=== PATIENT | male | born 1945 | race Caucasian/White ===

== ENCOUNTER 2022-10-27 06:35 | Outpatient (OUT) | payer MEDICARE, OTHER, SELFPAY ==
[2022-10-27 06:56] LABS: Basophils Percent Auto 0.8 % (0.2-2.0); Eosinophils Absolute Auto 0.1 10^3/uL (0.0-0.7); Eosinophils Percent Auto 2.2 % (0.9-7.0); Hematocrit 48.6 % (42.0-54.0); Hemoglobin 16.2 g/dL (14.0-18.0); Immature Granulocytes Abs Auto 0.02 10^3/uL (0.00-0.03); Immature Granulocytes Pct Auto 0.4 % (0.0-0.5); Lymphocytes Absolute Auto 1.3 10^3/uL (1.2-3.8); Lymphocytes Percent Auto 26.5 % (20.5-60.0); Mean Corpuscular HGB Conc 33.3 g/dL (29.9-35.2); Mean Corpuscular Hemoglobin 31.4 pg (25.9-34.0); Mean Corpuscular Volume 94.2 fL (80.0-94.0); Mean Platelet Volume 10.2 fL (9.5-13.5); Monocytes Absolute Auto 0.5 10^3/uL (0.3-0.8); Monocytes Percent Auto 10.1 % (1.7-12.0); Platelet Count 163 10^3/uL (150-450); Red Blood Count 5.16 10^6/uL (4.70-6.10); Red Cell Distribution Width 12.3 % (11.0-15.0); White Blood Count 5.1 10^3/uL (4.0-11.0)
[2022-10-27 07:38] LABS: BUN Creatinine Ratio 22.8; Calcium 8.4 mg/dL (8.5-10.1); Carbon Dioxide 28.2 mmol/L (21.0-32.0); Chloride 106 mmol/L (98-107); Chol HDL Ratio 3.9; Cholesterol 175 mg/dL (<=200); Estimated GFR (African America >60 (>=60); Estimated GFR (Non-African Ame >60 (>=60); Glucose 83 mg/dL (74-106); HDL Cholesterol 45 mg/dL (40-60); LDL Cholesterol Calculated 114.8 mg/dL; Potassium 4.2 mmol/L (3.5-5.1); Sodium 140 mmol/L (136-145); Thyroid Stimulating Hormone 4.787 uIU/mL (0.358-3.740); Triglycerides 76 mg/dL (<=150); VLDL CHOLESTEROL 15.2 mg/dL
== END 2022-10-27 06:36 | disposition home or self-care (01) ==
LOC: LAB 06:35
PROVIDERS: PCP Internal Medicine; Visit Provider Internal Medicine
DX: E78.00 Pure hypercholesterolemia, unspecified (principal); R53.83 Other fatigue
CPT/HCPCS: 36415; 80048; 80061; 84443; 85025

== ENCOUNTER 2022-11-26 09:23 | Outpatient (OUT) | payer MEDICARE, OTHER, SELFPAY ==
[2022-11-26 10:34] LABS: Thyroid Stimulating Hormone 2.298 uIU/mL (0.358-3.740)
[2022-11-26 10:54] LABS: Free T4 0.88 ng/dL (0.76-1.46)
[2022-11-27 03:07] LABS: Triiodothyronine (T3) 109 ng/dL (71-180)
== END 2022-11-26 09:24 | disposition home or self-care (01) ==
LOC: LAB 09:25
PROVIDERS: PCP Internal Medicine; Visit Provider Internal Medicine
DX: R94.6 Abnormal results of thyroid function studies (principal)
CPT/HCPCS: 36415; 84439; 84443; 84480

== ENCOUNTER 2023-12-06 11:30 | Outpatient (OUT) | payer MEDICARE, OTHER, SELFPAY ==
[2023-12-06 12:28] LABS: Basophils Percent Auto 0.5 % (0.2-2.0); Eosinophils Absolute Auto 0.1 10^3/uL (0.0-0.7); Hematocrit 50.3 % (42.0-54.0); Hemoglobin 16.5 g/dL (14.0-18.0); Immature Granulocytes Abs Auto 0.03 10^3/uL (0.00-0.03); Immature Granulocytes Pct Auto 0.5 % (0.0-0.5); Lymphocytes Percent Auto 17.6 % (20.5-60.0); Mean Corpuscular HGB Conc 32.8 g/dL (29.9-35.2); Mean Corpuscular Hemoglobin 31.4 pg (25.9-34.0); Mean Corpuscular Volume 95.6 fL (80.0-94.0); Mean Platelet Volume 10.5 fL (9.5-13.5); Monocytes Absolute Auto 0.5 10^3/uL (0.3-0.8); Monocytes Percent Auto 9.2 % (1.7-12.0); Neutrophils Absolute Auto 4.2 10^3/uL (1.4-6.5); Neutrophils Percent Auto 71.2 % (43.0-75.0); Platelet Count 173 10^3/uL (150-450); Red Blood Count 5.26 10^6/uL (4.70-6.10); Red Cell Distribution Width 12.5 % (11.0-15.0); White Blood Count 5.8 10^3/uL (4.0-11.0)
[2023-12-06 13:40] LABS: Percent Iron Saturation 39.7 %
[2023-12-06 13:51] LABS: Alanine Aminotransferase 33 U/L (16-63); Albumin Globulin Ratio 1.4; Albumin Level 3.8 g/dL (3.4-5.0); Alkaline Phosphatase 103 U/L (46-116); Anion Gap 12.9; Aspartate Amino Transferase 25 U/L (15-37); BUN Creatinine Ratio 20.9; Bilirubin Total 0.8 mg/dL (0.2-1.0); Calcium 9.2 mg/dL (8.5-10.1); Carbon Dioxide 29.7 mmol/L (21.0-32.0); Chloride 106 mmol/L (98-107); Estimated GFR (African America >60 (>=60 mL/min/1.73m^2); Estimated GFR (Non-African Ame >60 (>=60 mL/min/1.73m^2); Globulin 2.7 g/dL; Glucose 89 mg/dL (74-106); Potassium 4.6 mmol/L (3.5-5.1); Sodium 144 mmol/L (136-145); Thyroid Stimulating Hormone 3.542 uIU/mL (0.358-3.740); Total Protein 6.5 g/dL (6.4-8.2)
[2023-12-06 13:54] LABS: Prostate Specific Antigen Scrn 1.04 ng/mL (<=4.00)
[2023-12-07 05:07] LABS: Vitamin B12 561 pg/mL (232-1245)
== END 2023-12-06 11:31 | disposition home or self-care (01) ==
LOC: LAB 11:32
PROVIDERS: PCP Internal Medicine; Visit Provider Internal Medicine
DX: R53.83 Other fatigue (principal); D64.9 Anemia, unspecified; R79.89 Other specified abnormal findings of blood chemistry; Z12.5 Encounter for screening for malignant neoplasm of prostate
CPT/HCPCS: 36415; 80053; 82607; 82728; 83540; 83550; 84443; 85025; G0103

== ENCOUNTER 2024-12-07 11:39 | Outpatient (OUT) | payer MEDICARE, OTHER, SELFPAY ==
--- OUTSIDE RECORDS SUMMARY | 2024-12-07 11:43 | XMS_ITS | Clinical Summary ---
Author Organization [facility] Address [address] [place] [address] Care Team Providers Care Director [facility] Name Role Phone Cleveland Guajardo Primary Care Provider [phone] Allergies Active Allergy Reactions Criticality Noted Date Comments Ciprofloxacin 11/30/2016 Sulfamethoxazole High 08/17/2024 Other Reaction(s): other Medications aspirin (Aspirin Adult Low Dose) 81 MG EC tablet Take 81 mg by mouth Daily Active Coenzyme Q10 (COQ10 PO) 1 qd Active Garlic 1000 MG capsule Take 2 capsules every day by oral route. Active Glucosamine-Cho ndroit-Vit C-Mn (Glucosamine-Ch ondroitin) capsule 1500/1200 2 qd Activ e latanoprost (Xalatan) 0.005 % ophthalmic solution INSTILL 1 DROP INTO AFFECTED EYE(S) BY OPHTHALMIC ROUTE ONCE DAILY INTHE EVENING 4 Active calcium acetate (Phoslo) 667 MG capsule Take 1,334 mg by mouth in the morning and 1,334 mg at noon and 1,334 mg in the evening. Take with meals. Active busPIRone (Buspar) 5 MG tablet Take by mouth in the morning and before bedtime. Active cholecalciferol (Vitamin D-3) 25 MCG (1000 UT) capsule Take 1,000 Units by mouth Daily Active Lutein 20 MG tablet Take by mouth Active Multiple Vitamin (multivitamin) tablet Take 1 tablet by mouth Daily Active fish oil-omega-3 fatty acids 1000 MG capsule Take 2 g by mouth Daily Active Turmeric 400 MG capsule Take by mouth Active B Complex-C (b complex-vitamin c) tablet Take 1 tablet by mouth Daily Active Active Problems Problem Noted Date Diagnosed Date Mitral valve disease 08/17/2024 Primary open-angle glaucoma, bilateral, mild sta ge 08/17/2024 Anxiety 04/25/2018 Hyperlipidemia 04/25/2018 Male erectile dysfunction, unspecified 9 Diverticular disease 02/06/2016 Glaucoma 02/06/2016 History of repair of inguinal hernia 02/06/2016 History of repair of mitral valve 02/06/2016 Osteoarthritis 02/06/2016 Diverticulosis of colon 03/24/2010 Overview (08/17/2024): Sep 15, 2012 Entered By: JAVON FOSS Comment: colonoscopy Mar 2010. diverticulosis. Family History Relation Name Status Comments Father Mother Social History Tobacco Use Types Packs/Day Years Used Date Smoking Tobacco: Never Smokeless Tobacco: Never Tobacco Cessation:Counseling Given: Not Answered Alcohol Use Standard Drinks/Week Comments Never 0 (1 standard drink = 0.6 oz pur e alcohol) Sex and Gender Information Value Date Recorded Sex Assigned at Not on file Legal Sex Male 10:07 PM EDT Gender Identity Not on file Sexual Orientation Not on file Last Filed Vital Signs Vital Sign Reading Time Taken Comments Blood Pressure - - Pulse - - Temperature - - Respiratory Rate - - Oxygen Saturation - - Inhaled Oxygen Concentration - - Weight 77.1 kg (170 lb) 08/20/2024 2:15 PM EDT Height 177.8 cm (5' 10 ) 08/20/2024 2:15 PM EDT Body Mass Index 24.39 08/20/2024 2:15 PM EDT Plan of Treatment Not on file [place] [address] [facility] Care Teams Director [facility] Relationship Specialty Start Date End Date Cleveland Guajardo DO [address] [place] [id number] PCP - General Internal Medicine 08/20/24
--- OUTSIDE RECORDS SUMMARY | 2024-12-07 11:43 | XMS_ITS | Encounter Summary ---
Author Organization [facility] Address [address] 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 Role Phone Unavailable Primary Care Provider Unavailabl e Encounter Details Date Type Department Care Team (Late st Contact Info) Description 12/10/2022 Scanned Document [facility] [address] [place] [address] Scanning, Generic Provider Social History Tobacco Use Types Packs/Day Years Used Date Smoking Tobacco: Never Assessed Sex and Gender Information Value Date Recorded Sex Assigned at Not on file Legal Sex Male 11:36 AM EST Gender Identity Not on file Sexual Orientation Not on file documented as of this encounter Plan of Treatment Not on file documented as of this encounter Procedures Procedure Name Priority Date/Time Associated Diagnosis Comments ECHOCARDIOGRAM 12/10/2022 documented in this encounter Results * ECHOCARDIOGRAM (12/10/2022) Narrative 12/10/2022 Ordered by an unspecified provider. us Generic Provider Scanning CV ECHO PROCEDURES Fin al Result documented in this encounter Visit Diagnoses Not on filedocumented in this encounter
--- OUTSIDE RECORDS SUMMARY | 2024-12-07 11:43 | XMS_ITS | Clinical Summary ---
Author Organization [facility] Address [address] 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 Role Phone Unavailable Primary Care Provider Unavailabl e Social History Tobacco Use Types Packs/Day Years Used Date Smoking Tobacco: Never Assessed Sex and Gender Information Value Date Recorded Sex Assigned at Not on file Legal Sex Male 11:36 AM EST Gender Identity Not on file Sexual Orientation Not on file Plan of Treatment Health Maintenance Due Date Last Done Comments Lipid Panel 1945 Medicare Annual Wellness Vis it (AWV) 1945 Hepatitis C Screening 1965 DTaP/Tdap/Td Vaccines (1 - Tdap) 1969 Pneumococcal Vaccine (1 of 1 - PCV) 1997 Zoster Vaccines (1 of 2) 1997 RSV High Risk: (Elderly (60+ ) or Population) (1 - 1-dose 75+ series) 2022 Influenza Vaccine (#1) 2024 COVID-19 Vaccine (1 - 2024-2 6 season) 2024 HIB Vaccines Aged Out No longer eligi ble based on patient's age to complete this topic HPV Vaccines Aged Out No longer eligi ble based on patient's age to complete this topic Hepatitis A Vaccines Aged Out No long er eligible based on patient's age to complete this topic Hepatitis B Vaccines Aged Out No long er eligible based on patient's age to complete this topic IPV Vaccines Aged Out No longer eligi ble based on patient's age to complete this topic Meningococcal Vaccine Aged Out No zay essence eligible based on patient's age to complete this topic Rotavirus Vaccines Aged Out No longer eligible based on patient's age to complete this topic Insurance MEDICARE [facility]
--- OUTSIDE RECORDS SUMMARY | 2024-12-07 11:43 | XMS_ITS | Data Portability ---
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 [phone] Assessment Encounter Date Assessment Date Assessment LastModified by Organization Details LastModified Time 04/24/2023 04/24/2023 A total of 30 minutes spent caring for this patient today including the activities marked (X) below: [X] Preparing to see the patient (review of previous notes and results on file) [-] Obtaining and/or reviewing separately obtained history [X] Performing medically appropriate exam/evaluation [X] Counseling and educating the patient/family/ca regiver [X] Ordering tests or procedures [-] Referring and communicating with other health professionals (not separately reported) [X] Documenting clinical information in EHR/EMR [X] Independent interpretation of results (not separately reported) [X] Care Coordination (not separately reported) Additional notes: printed precaution given for Paxlovid / Lagivero printed OTC list Given [email or web address] Not available 04/24/2023 09:43:52 Plan of Treatment Reminders Order Date Submit Date Provider Last Modified By Organization Details Last Modified Time Details Appointments None recorded. Lab None recorded. Referral None recorded. Procedures None recorded. Surgeries None recorded. Imaging XR, chest, 2 view 2023 024 [place], [employer] [facility], All Locations, [place], [address], 4 14:07:49 XR, shoulder 2021 022 [facility], [facility], All Locations, [place], [address], 2 21:50:10 unlisted imaging order - US soft tissue 2019 020 [facility], [facility], All Locations, [place], [address], 0 17:02:02 XR, tibia + fibula 2019 020 [facility], [facility], All Locations, [place], [address], 0 15:54:52 Medication Orders Augmentin 875 mg-125 mg tablet [address] [facility] #[id number], [address] [place], [place], [id number], 4 09:45:15 benzonatat e 100 mg capsule [address] [facility] #90215, [address], [place], [id number], 4 09:45:16 prednisone 20 mg tablet [address] [facility] #15344, [address], [place], [id number], 4 09:09:59 meloxicam 7.5 mg tablet [address] [facility] #92181, [address], [place], [place], [id number], 4 09:10:20 famotidine 20 mg tablet 2019 020 INTERFACE [facility]67, [address], [place], [place], [id number], 0 14:20:07 Patient TargetsNo targets recorded. Patient Instructions Encounter Date Encounter Id Patient Instructions Last Modified By Organization Details Last Modified Time 04/16/2019 [id number] contusion: care instructions Not available 04/16/2019 15:38:16 Discussed right LE injury, contusion and no obvious Fx noted on sray (radiology report pending)-applied annmarie wrap,. Discussed RICE, motrin, tylenol. Follow up with ortho/PCP. Discussed warning signs to go to ER (severe swelling with loss of circulation/sens ation/motion, fever, chills, blue/cold extremity). Not available 04/17/2019 15:39:44 05/07/2019 [id number] We'll order ultrasound soft tissue. We'll place him on meloxicam as instructed together with Pepcid coverage. Warm compresses several times a day. Review in a week. Not available 05/07/2019 14:26:17 05/14/2019 [id number] He can continue applying warm compresses. He is on meloxicam and Pepcid. He can stop this when he is feeling better. Advised him to have the Pepcid around if any issues arise that he may need a nonsteroidal. He has a history of esophagitis. He plans to return in December. Not available 05/14/2019 14:39:00 03/29/[id number] Patient understands instructions and will seek medical attention if symptoms worsen as directed. [email or web address] Not available 03/29/2021 09:29:46 04/24/2023 [id number] ear infection (otitis media): care instructions [email or web address] Not available 04/24/2023 09:47:08 cough: care instructions [email or web address] Not available 04/24/2023 09:47:08 earwax blockage: care instructions [email or web address] Not available 04/24/2023 09:47:08 print care instructions [email or web address] Not available 04/24/2023 09:45:09 Patient understands instructions and will seek medical attention if symptoms worsen as directed. Patient agrees to follow up with PCP. Patient understands instructions and with verbal acknowledgement. Patient understands if symptoms worsens they will seek emergency medical treatment and or call 911 if needed. Patient understands with verbal acknowledgement. [email or web address] Not available 04/24/2023 09:45:01 Reason for Referral None Reported. Results Created Date Observation Date Name Description Value Unit Range Abnormal Flag Note LastModifiedBy Organization Detail LastModifiedTime 04/18/19 20 04/16/2019 tib/f ib 2V right No observ ation record ed. [id number] [facility] All Locations, [place], [address], 02/03/2024 19:34:09 05/08/19 20 05/08/2019 US soft tissu e RT lower ext non vascu lar No observ ation record ed. [id number] [facility] All Locations, [place], [address], 02/03/2024 19:34:02 03/30/19 22 03/29/2021 XR, shoul shruthi INDICA TION: . TECHNI QUE: SHOULD ER 3V RIGHT. COMPAR ANA: None FINDIN GS: High riding ghanshyam l head. No acute fractu re or disloc ation. Mild degene rative change s in the acromi oclavi cular and glenoh umeral joints . No acute infilt rate in what is seen in the right lung. There are midlin e sterno soraya wires. IMPRES LUIS: High riding ghanshyam l head which can be seen in the presen ce of rotato r cuff pathol ogy. No acute osseou s abnorm ality. Electr onical ly Signed By: Kendra davis M.D., Darin Sign Date: [id number] [facility] All Locations, [place], [address], 03/31/2021 10:06:44 04/24/19 24 04/24/2023 XR, chest , 2 view INDICA TION: R05.9 Cough, unspec ified. TECHNI QUE: CHEST 2V. COMPAR ANA: None FINDIN GS: Postsu rgical change s are presen t from sterno soraya with heart replac ed valve. Cardia c silhou ette is not enlarg ed. Lungs appear clear consol idatio n or infilt rate. No pleura l effusi on is shown. There is hyperi nflati on with flatte karina of hemidi aphrag ms. Thorac ic spondy losis is presen t. IMPRES LUIS: No pulmon lisa infilt rates are shown. Hyperi nflati on is sugges cristhian. Note: The [facility] an Cancer Societ y, [facility] and the [place] preven tative servic es task force now approv e CT low-do se chest screen ing in the follow ing patien ts: - Age 55-77 who curren tly smoke or who have quit within the last 15 years - Asympt omatic patien ts with a 30-pac k-year histor y of smokin g Electr onical ly Signed By: Aline Rodriges Stanle y Sign Date: [id number] [facility] All Locations, [place], [address], 01/13/2024 19:45:54 Result Notes Documentation Provider Name and Address Organization Details Recorded Time Xr, Shoulder : INDICATION: . TECHNIQUE: SHOULDER 3V RIGHT. COMPARISON: None FINDINGS: High riding humeral head. No acute fracture or dislocation. Mild degenerative changes in the acromioclavicular and glenohumeral joints. No acute infiltrate in what is seen in the right lung. There are midline sternotomy wires. IMPRESSION: High riding humeral head which can be seen in the presence of rotator cuff pathology. No acute osseous abnormality. Electronically Signed By: Alien Rogers Darin Sign Date: 30-MAR-21 Phyllis Diaz [place], [place] - [employer] [facility], [facility] 03/31/2021 10:06:44 Xr, Chest, 2 View : INDICATION: R05.9 Cough, unspecified. TECHNIQUE: CHEST 2V. COMPARISON: None FINDINGS: Postsurgical changes are present from sternotomy with heart replaced valve. Cardiac silhouette is not enlarged. Lungs appear clear consolidation or infiltrate. No pleural effusion is shown. There is hyperinflation with flattening of hemidiaphragms. Thoracic spondylosis is present. IMPRESSION: No pulmonary infiltrates are shown. Hyperinflation is suggested. Note: The [employer], [facility] and the [place] preventative services task force now approve CT low-dose chest screening in the following patients: - Age 55-77 who currently smoke or who have quit within the last 15 years - Asymptomatic patients with a 40-vwvz-eufi history of smoking Electronically Signed By: Aline Rodriges Stanley Sign Date: 24-APR-23 Not Available [facility] 01/13/2024 20:08:56 Problems Name Problem SNOMED Code Status Onset Date Resolution Date Notes Provider Name and Address Organization Details Recorded Time Osteoarthritis 411408503 Active [address], [place], [address], [facility] 6 11:58:14 Diverticular disease 616506313 Active [address], [place], [address], [facility] [employer] [facility], [facility] 6 11:58:25 History of repair of mitral valve 531376705 Active [address], [place], [address], [facility], [employer] 6 11:58:47 Glaucoma 48445507 Active [address], [place], [address], [facility], [facility] 6 11:59:29 History of repair of inguinal hernia 493882431 Active [address], [place], [address], [facility] Physician [facility], [facility] 6 12:04:01 Complaining of erectile dysfunction Active 2018 Sabrina Mckinney MD [address], [place], [address], [facility], [facility] 9 17:08:35 Anxiety 02467181 Active 2018 Sabrina Mckinney MD [address], [place], [address], [facility], [facility] 9 16:49:32 Hyperlipidemia 91832524 Active 2018 Sabrina Mckinney MD [address], [place], [address], [facility], [facility] 9 16:49:44 Problem Notes None recorded. Procedures Surgical History Date Name Laterality Status Provider Name and Address Organization Details Recorded Time 04/24/19 24 Cerumen Disimpaction Lavage Only (PCP, WIC, Spec) completed Katie Fry APRN [address], [place], [address], [facility] Physician [facility], [facility] 04/24/2023 09:45:50 02/21/19 16 Other completed [facility], [facility] 02/06/2016 11:26:27 02/21/19 16 Other completed [facility], [facility] 02/06/2016 11:26:51 02/21/19 15 Hernia repair completed [facility], [facility] 02/06/2016 11:23:48 02/21/19 15 Excision of completed [facility], [facility] 02/06/2016 11:24:38 02/21/19 14 Cataract excision completed PINA Medeiros [address], [place], [address], [facility] Physician [facility], [facility] 02/06/2016 20:25:22 02/21/19 13 Colonoscopy completed [facility], [facility] 02/06/2016 11:25:06 02/21/19 07 Hernia repair completed [facility] 02/06/2016 11:23:10 02/21/19 06 Back surgery completed [facility] 02/06/2016 11:22:48 02/21/19 00 Valve replacement/repa ir completed [facility] 02/06/2016 11:22:20 02/21/18 97 Knee surgery completed [facility] 02/06/2016 11:21:44 02/21/18 57 Appendectomy completed [facility] 02/06/2016 11:22:34 Imaging Results None recorded. Procedure Notes None recorded. Medical Equipment None Reported. Allergies Allergen ID Allergen Name Allergen Category Reaction Reaction Severity Criticality Documentation Date Start Date Code Code System Note Provider Name and Address Organization Details Recorded Time 989783 ciproflox acin medicatio n Not available Not available Not available 12/27/2016 2551 RxNorm Rossi Altamirano [facility] 7 15:54:15 265529 sulfameth oxazole medicatio n other severe Not available 12/27/2016 45389 RxNorm Rossi Altamirano [facility] 7 15:58:04 Medications Name Sig Start Date Stop Date Status Note LastModified by Organization Details LastModified Time latanoprost 0.005 % eye drops INSTILL 1 DROP INTO AFFECTED EYE(S) BY OPHTHALMI C ROUTE ONCE DAILY INTHE EVENING active Not Available Not Available No t Available Augmentin 875 mg-125 mg tablet Take 1 tablet every 12 hours by oral route for 7 days, for ear infection . 2023 active Not Available Not Available Not Avai lable prednisone 20 mg tablet Take 2 tablets every day by oral route for 5 days. 04/23 completed Not Available Not Available Not Available Viagra 50 mg tablet Take 1 tablet 1 hour before activity. 03/12 completed Not Available Not Available Not Available omeprazole 40 mg capsule,del ayed release 02/05 completed Not Available Not Available Not Available tramadol 50 mg tablet 02/05 completed Not Available Not Available Not Available meloxicam 7.5 mg tablet Take 1 tablet every day by oral route as directed. 04/23 completed Not Available Not Available Not Available garlic 1,000 mg capsule Take 2 capsules every day by oral route. active Not Available Not Available No t Available oxycodone-a cetaminophe n 5 mg-325 mg tablet 02/05 completed Not Available Not Available Not Available famotidine 20 mg tablet Take 1 tablet twice a day by oral route. 2019 active Not Available Not Available Not Avai lable tamsulosin 0.4 mg capsule 04/04 completed Not Available Not Available Not Available benzonatate 100 mg capsule Take 1 capsule 3 times a day by oral route for 10 days, for cough. 2023 active Not Available Not Available Not Avai lable pramipexole 0.125 mg tablet 02/05 completed Not Available Not Available Not Available Asprin Ec Low Dose 81 mg tablet,angela yed release Take 1 tablet every day by oral route. active Not Available Not Available No t Available Vitamin C 1000 mg qod active Not Available Not Available No t Available vitamin E 1 qod 12/30 completed Not Available Not Available Not Available Vitamin D 1 qod 12/30 completed Not Available Not Available Not Available Acidophilus 1 qd active Not Available Not A vailable Not Available CoQ10 1 qd active Not Available Not Availa ble Not Available Glucosamine Chondroitin 1500/1200 2 qd active Not Available Not Available No t Available mvi, adult no.2 without vit K 1 qd active Not Available Not Available Not Available Lialda 1.2 gram tablet,angela yed release 02/05 completed Not Available Not Available Not Available Fish Oil 1,000 mg (120 mg-180 mg) capsule Take 1 capsule every other day by oral route. 12/30 completed Not Available Not Available Not Available Vitals Date Recorded Body weight Body temperature Heart rate Respiratory rate Oxygen saturation Oxygen saturation in Arterial blood by Pulse oximetry Pain severity - 0-10 verbal numeric rating [Score] - Reported Body mass index (BMI) Body height Systolic And Diastolic Provider Name and Address Organization Details Last Updated DateTime 2 47606.6 6 g 98.4 [degF] 60 /min 16 /min 98 % 98 % 6 25.1 kg/m2 177.8 cm 107/68 mm[Hg] Jany Farzad [facility], [facility] 2 09:10:46 Date Recorded Body height Body mass index (BMI) Heart rate Body weight Body temperature Oxygen saturation Oxygen saturation in Arterial blood by Pulse oximetry Respiratory rate Systolic And Diastolic Provider Name and Address Organization Details Last Updated DateTime 0 179.07 cm 24.3 kg/m2 65 /min 85138 g 98.6 [degF] 96 % 96 % 16 /min 103/74 mm[Hg] Debbie Davisonscot [facility], [facility] 0 14:16:10 Date Recorded Body weight Body mass index (BMI) Body height Body temperature Heart rate Respiratory rate Oxygen saturation Oxygen saturation in Arterial blood by Pulse oximetry Pain severity - 0-10 verbal numeric rating [Score] - Reported Systolic And Diastolic Provider Name and Address Organization Details Last Updated DateTime 4 77558.5 2 g 24.1 kg/m2 177.8 cm 98.3 [degF] 75 /min 16 /min 95 % 95 % 6 110/74 mm[Hg] Kiki Steinberg [facility], [facility] 4 09:12:17 Date Recorded Body height Body mass index (BMI) Body weight Body temperature Heart rate Respiratory rate Oxygen saturation Oxygen saturation in Arterial blood by Pulse oximetry Systolic And Diastolic Provider Name and Address Organization Details Last Updated DateTime 0 179.07 cm 23.9 kg/m2 15111.1 1 g 98.3 [degF] 64 /min 16 /min 98 % 98 % 120/70 mm[Hg] Mojgan Nassar [facility], [facility] 0 13:53:16 Date Recorded Body height Body mass index (BMI) Body weight Body temperature Heart rate Respiratory rate Oxygen saturation Oxygen saturation in Arterial blood by Pulse oximetry Systolic And Diastolic Provider Name and Address Organization Details Last Updated DateTime 0 179.07 cm 24 kg/m2 44957.7 g 98.6 [degF] 69 /min 15 /min 98 % 98 % 120/60 mm[Hg] Mojgan Nassar [facility], [facility] 0 14:14:10 Social History Question Answer Notes LastModified by Organizat [employer] Details LastModified Time Tobacco Smoking Status Never Smoker Mojgan Nassar diann [place] - [facility], [facility] 02/06/2016 11:14:23 Which Illicit Or Recreational Drugs Have You Used? No Information not available 02/06/2016 Alcohol Use 1-2 Per Week Information not available 02/06/2016 Marital Status Informatio n not available 02/06/2016 What Was The Date Of Your Most Recent Tobacco Screening? 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 Moderate bike, table tennis Information not available 02/06/2016 Mental Status None recorded. Family History Relationship Description Onset Age of this Age Resolved Age Notes LastModified by Organization Details LastModified Time Mother Heart disease 79 Not available 2019 14:14:55 Mother Congestive heart failure 79 Not available 2019 14:14:55 Mother Diabetes mellitus [email or web address] Not available 2015 20:22:44 Mother Hyperlipidem ia Not available 2019 14:14:55 Father Pulmonary embolism 74 Not available 2019 14:14:55 Notes:As above. 2 sisters al héctor, 79 and 82. Medical History Condition Response Cancer (location) N Other N Gout N Kidney Stones N Measles/Mumps N Arthralgia N Vomiting N Yeast Infection N Sexually Transmitted Disease N Depression N Blood Clots N Wheezing N Pneumonia N Prostate Problems N Parkinson's N Paralysis N Headaches/Migraines N Cardiac Pacemaker/defibrillator N Dizziness N Arthritis Y Infertility N Night Sweats N Artificial Joint N Blood in Stool N Crohn's Disease N HIV/AIDS N Stroke/TIA N Kidney Disease N Hiatal Hernia N High blood pressure N Gallbladder disease N Weight Loss N Blood Thinner Treatment N Alcohol Overuse N Gallstones N Nervous Breakdown N Vivar's Esophagus N Muscle Aches N Urinary Problems N Nausea N Gastritis N Back pain N Rheumatic Fever N Bleeding Disorder N Osteopenia/Osteoporosis N inflammation of vein N Asthma N Ostomies (location) N Seizures N Swelling/Edema N Jaundice N Hepatitis N Past Reacton to Contrast Media N Cirrhosis N Chicken Pox N Allergies (other than meds) N Thyroid Disease N Diarrhea N Emphysema/COPD N Lung Disease N Vascular Disease N Rash/Skin Condition N Amputation (location) N Nerve Damage / Neuropathy N Blood in Urine N Sleep disorder/Insomnia N Heart disease / Heart Attack N Shortness of Breath N High Cholesterol N Colon Problems N Serious Injuries N Dialysis N Leg Cramping N Memory Loss/Alzheimer's N Chronic Cough N Fever/Chills N Congestive heart failure N Falls N Hormone Replacement N Diabetic Eye Disease N Anemia N Chest Pain N Colon Polyps N Hospitalizations (other than operations) N Diabetes N Cardiac Arrhythmias /irregular heart rat e N Heart Murmur N Phlebitis N Anxiety/Stress N Vision Problems N Erectile / Sexual Dysfunction N Epilepsy N Morning Cough N Sleep Apnea N Fainting N GERD/Ulcer N Bronchitis N Past Encounters Encounter ID Performer Location Encounter Start Date Encounter Closed Date Diagnosis/Indication Diagnosis SNOMED-CT Code Diagnosis ICD10 Code Diagnosis IMO Codes Diagnosis Note [id number] PINA Medeiros [facility] [address] [place] [address] 02/06/2016 11:01:11 02/10/2016 12:56:38 Screening for disorder 965729381 Z13.9 Patient requesting referral for H. pylori testing. Referral made to gastroente rology. History of repair of inguinal hernia 459327214 Z98.890 Right inguinal hernia repair about 3 weeks ago. Incision is healing well. Patient has no complaints of pain. Glaucoma 00467126 H40.9 Glaucoma, chronic, on latanopros t eyedrops. No current symptoms. History of repair of mitral valve 921685664 Z98.890 History of mitral valve repair, followed by cardiology in [place]. No current symptoms. Diverticular disease 397 568190 K57.90 History of diverticul ar disease with episode of diverticul itis last year. No current symptoms. Osteoarthritis 101695937 M19.90 Osteoarthr itis of bilateral knees, but with minimal discomfort . [id number] [facility] [address] [place] [address] 12/27/2016 14:39:36 12/27/2016 16:24:45 Contusion of right foot 6446677501 3119313 S90.31XA [id number] MD MARCIANO Ramon [address] [place] [address] 12/30/2016 15:06:13 12/30/2016 16:36:23 Pain in right foot 8024273270 92140 M79.671 Osteoarthr itis of ankle and/or foot 32737981 M19.079 Intermitte nt claudication 60736429 I73.9 Cold feet 871384610 R20. 8 Abdominal aortic bruit 214769323 R09.89 [id number] MD MARCIANO Ramon [address] [place] [address] 01/12/2017 07:45:11 01/12/2017 08:46:37 Osteoarthritis 997411281 M19.90 Knees Disorder o f joint of ankle and/or foot 556759932 M12.871 Gastroesop hageal reflux disease 360760236 K21.9 Hyperlipidemia 07163273 E78.5 [id number] MD MARCIANO Ram[place] [address] 04/04/2018 16:15:39 04/09/2018 14:29:33 Complaining of erectile dysfunction 709691345 N52.9 Hyperlipidemia 57548773 E78.5 Benign pro static hyperplasia 460802403 N40.0 [id number] MD MARCIANO Ramon [address] [place] [address] 04/25/2018 16:14:02 04/30/2018 20:32:02 Complaining of erectile dysfunction 347500658 N52.9 Anxiety 56385245 F41.9 Hyperlipidemia 87266766 E78.5 Long-term drug therapy 874242807 Z79.899 [id number] MD MARCIANO Ramon PCP [address] [place] [address] 03/12/2019 15:45:41 03/13/2019 06:53:38 Influenza vaccination declined 086694486 Z28.21 Pneumococc al vaccination declined 579837322 Z28.21 Gastroenteritis 92839758 K52.9 Diverticul ar disease of colon 559668043 K57.30 Stable. Monitor. Complainin g of erectile dysfunction [id number] N52.9 Asymptomat ic. Stable. Monitor. [id number] MELI SHANKS APRN [facility] [address] [facility] [place] [address] 04/16/2019 13:10:50 04/16/2019 15:43:35 Injury of right lower leg [id number] S89.91XA Contusion of lower leg [id number] S80.11XA [id number] Sabrina Mckinney MD [facility] [address] [place] [address] 05/07/2019 13:35:43 05/07/2019 14:32:33 Contusion of right lower leg [id number] S80.11XA Long-term drug therapy [id number] Z79.899 [id number] Sabrina Mckinney MD [facility] [address] [place] [address] 05/14/2019 14:04:58 05/14/2019 14:42:50 Contusion of right lower leg [id number] S80.11XA [id number] [facility] [place] W[facility] IN [address] [place] [address] 03/29/2021 08:55:50 03/29/2021 09:29:47 Pain of right shoulder joint [id number] M25.511 Acute. Worsening. Initial treatment. will xr to eval for fx.Provide r read of x-ray shows no acute fracture. Patient placed in sling. Patient will get a CD of his images and follow-up with his orthopedic doctor. Patient will be given prednisone for inflammati on and advised to take Tylenol. Care instructio ns printed and given to patient. Follow-up with PCP, or if can't get in with PCP, at the walk-in if no better or ER if any worse, or any red flag symptoms. Patient voiced understand ing and agreement with treatment plan. [id number] KE[facility] [place] [facility] [address] [place] [address] 04/24/2023 08:20:26 04/24/2023 09:49:00 Acute left otitis media [id number] H66.92 Acute. Worsening. Initial treatment. Ear infection care instructio ns printed and given to pt. Follow-up with PCP, or if can't get in with PCP, at the walk-in if no better or ER if any worse, or any red flag symptoms (bleeding or drainage from ear, fever, extreme ear pain). Patient voiced understand ing and agreement with treatment plan. Impacted c erumen in left ear [id number] H61.22 Acute. worsening Initial treatment. incidental findings left earCare instructio ns printed and given to patient. Follow-up with PCP, or if can't get in with PCP, return at the walk-in if no better or ER if any worse, or any red flag (fever, chills, ear pain worsening) symptoms. Patient voiced understand ing and agreement with treatment plan.Cerum en removal completely clear right ear, patient tolerated wellpatien t instructio n on applicatio n of ear dropslie down to instill the ear drops instill wait 45 seconds instill cotton ball before raising head upPost impaction Prevention : Cerummenol oytic agents, hygiene, education and environmen shannon controls Productive cough [id number] R05.9 Acute. Worsening. Initial treatment. homeDrink lots of water and other fluids. ...Take cough medicine as directed by your doctor.Pro p up your head on pillows to help you breathe and ease a dry cough.Try cough drops or hard candy to soothe a dry or sore throat.Do not smoke. patient does not smokeCare instructio ns printed and given to patient.Fo llow-up with PCP, or if can't get in with PCP, at the walk-in if no better or ER if any worse, or any red flag (fever, increased in coughing with wheezing symptoms. Patient voiced understand ing and agreement with treatment plan. Health Concerns Section Related Observation LastModified by Organization Detai ls LastModified Time None Recorded Concern Status LastModified by Organization Details LastModified Time None Recorded Advance Directives Directive None Recorded Payers Insurance Date Sequence Insurance Name Policy Number Policy Thompson Covered Member ID Thompson Member ID Guarantor Name 04/24/2023 1 [employer] - MEDICARE-[address] [facility] BOARD (MEDICARE) Quentin Davis [id number] Quentin Davis 04/24/2023 1 [place] Quentin Davis [id number] Quentin Lee Ann Susan 04/24/2023 1 [employer] [employer] - MEDICARE-[address] [employer] BOARD (MEDICARE) Quentin Davis [id number] Quentin Lee Ann Susan 04/24/2023 2 [facility] RA[facility] PLAN F [facility] [id number] Quentin Davis [id number] Quentin Davis 04/24/2023 1 [employer] [employer] - MEDICARE-[address] [employer] BOARD (MEDICARE) Quentin Davis [id number] Quentin Davis Notes Date Note Type Note Provider Name and Address Organization Details Recorded Time 04/16/2019 text/html ROS as noted in the HPI Pt appears well, presents with Right leg pain/swelling for 1 week-injured playing tennis -the leg slammed hard against the table and another player -nothing makes better or worse, intermittent/ moderate discomfort, non-radiates. MELI SHANKS, [employer] [address] [facility] [address], [place], [address], [facility] - [facility], [facility] 04/17/2019 15:40:27 05/07/2019 text/html ROS as noted in the HPI 74-year-old male complaining of throbbing pain in the right leg. He had blunt injury to this about 5 weeks ago and was seen in the walk-in after about a week. Thought to have contusion in the right lateral pretibial area. No bruising. X-rays were done with negative fracture. He was told to take Tylenol or Motrin. He takes Advil about 2 at different times every week. Minimal improvement. He denies any shortness of breath. No chest pain. Sabrina Mckinney MD [address], [place], [address], [facility] [employer] [facility], [employer] 05/07/2019 14:26:21 05/14/2019 text/html CORONAVIRUS SCREENING TOOL Fever Confirmation No Respiratory Illnesses No Travel To Affected Areas No Contact with Coronavirus No Imported from [facility] on 05/14/2019 74-year-old male seen in follow-up for his right leg. This is getting better and he has had no further falls. We did an ultrasound to make sure there are no tumors. X-ray was already negative. Sabrina Mckinney MD [address], [place], [address], [facility], [employer] 05/14/2019 14:39:09 03/29/2021 text/html Shoulder PainReported by Patientpt c/o pain to right shoulder x 4 days. / pain. had a fall last tuesday playing pickleball. landed right onto right shoulder. States he can not raise his arm above shoulder. OTC heat, ice,tylenol. denies numbness or tingling to the arm. denies hitting head, loc, neck or back pain.ROS as noted in the HPI Saranya Deng MD [address], [place], [address], [facility] [employer] [facility], [employer] 03/29/2021 21:08:03 04/24/2023 text/html Acute HPIReporte d by [email or web address] y/o male, PCP: Faye NAVARRO. Patient c/o morning sinus drainage Which causing bilateral ear pain with (L) being the worse. Patient also states developed a cough. x 2 weeks Katie Fry APRN [address], [place], [address], [facility], [employer] 04/24/2023 09:47:20
--- OUTSIDE RECORDS SUMMARY | 2024-12-07 11:43 | XMS_ITS | Encounter Summary ---
Author Organization [facility] Address [address] [place] [address] Phone Care Team Providers Care Bottom Presser Name Role Phone Unavailable Primary Care Provider Unavailabl e Encounter Details Date Type Department Care Team (Late st Contact Info) Description 06/27/2023 Scanned Document [facility] [address] [place] [id number] Scanning, Generic Provider Social History Tobacco Use [...] Name Priority Date/Time Associated Diagnosis Comments ECHOCARDIOGRAM 06/27/2023 documented in this encounter Results * Echocardiogram (06/27/2023) Narrative 06/27/2023 Ordered by an unspecified provider. us Generic Provider Scanning CV ECHO PROCEDURES Fin al Result documented in this encounter Visit Diagnoses Not on filedocumented in this encounter
--- OUTSIDE RECORDS SUMMARY | 2024-12-07 11:44 | XMS_ITS | CCD ---
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 Role Phone BENNETT, DR LOPES Admitting Unavailable BALL, DR OLPES Attending Unavailable BALL, DR LOPES Primary Care Unavailable BALL, DR LOPES Admitting Unavailable BALL, DR LOPES Attending Unavailable BALL, DR LOPES Primary Care Unavailable BALL, DR LOPES Consulting Unavailable BALL, DR LOPES Admitting Unavailable BALL, DR LOPES Attending Unavailable BALL, DR LOPES Primary Care Unavailable BALL, DR LOPES Consulting Unavailable BALL, DR LOPES Primary Care Unavailable REINECK, DR LESIA Ortiz Admitting Unavailabl e MASOUD, DR LESIA Ortiz Attending Unavailabl e MASOUD, DR LESIA Ortiz Consulting Unavailabl e OSMANI, DR NAS Maddox Consulting Unavailable Cleveland Guajardo Unavailable Ha Junior Unavailable DO Ha Junior Attending Provider [phone] NON STAFF Primary Care Provider UnavailDO Cleveland Edwards Primary Care Provider DO Cleveland Guajardo Attending Provider Renata Carvalho Unavailable DO Cleveland Guajardo Primary Care Provider MD Renata Carvalho Attending Provider [phone] Cleveland Guajardo DO Primary Care Provider Renata Carvalho MD Attending Provider Clevleand Guajardo DO Attending Provider Cleveland Guajardo DO Primary Care Provider ELY HILTON Attending Unavailable CLEVELAND GUAJARDO Referring Unavailable Cleveland Guajardo DO Primary Care Provider Ha Junior DO Attending Provider [phone] Ha Junior Attending Unavailable Ha Junior Admitting Unavailable Cleveland Guajardo Primary Care Unavailable Cleveland Guajardo DO Primary Care Provider Cleveland Guajardo DO Attending Provider Allergies Allergy Classification Reported Allergen(s) Allergy Type Date of Onset Reaction(s) Facility (1 source) Sulfonamides (Antibiotic) Drug allergy (disorder) 10-04-19 [facility] Repository (10 sources) Sulfamethoxazole / Trimethoprim Drug Allergy Unknown lettrs Other (10 sources) Sulfamethoxazole; Translations: [sulfamethoxazole] Drug Allergy 12-22-19 Unknown Reaction [facility] (7 sources) Trimethoprim; Translations: [trimethoprim] Drug Allergy 12-22-19 Unknown Reaction [facility] (3 sources) Ciprofloxacin Drug Allergy 12-01-19 [facility] Healthcare Medications Current Medications Medication Drug Class(es) Dates Sig (Normalized) Sig (Original) aspirin 81 mg chewable tablet (10 sources) Platelet Aggregation Inhibitor, Nonsteroidal Anti-inflammatory Drug Start: 07-20-2023 take 1 tablet by mouth once daily Aspirin 81 mg tablet,chewable Active 81 MG PO Daily July 20, 2023 12:00am Complies with drug therapy take 1 tablet by mouth once eliza y aspirin (Aspirin Adult Low Dose) 81 MG EC tablet Take 81 mg by mouth Daily Active B Complex-C (b complex-vitamin c) tablet (3 sources) take 1 tablet by mouth once daily B Complex-C (b complex-vitamin c) tablet Take 1 tablet by mouth Daily Active busPIRone hydrochloride 5 mg oral tablet (20 sources) Start: 12-06-2024 take 1 tablet by mouth twice daily as needed for anxiety Buspirone 5 mg tablet Active 5 MG PO Twice daily as needed for anxiety 180 90 December 06, 2024 9:19am Complies with drug therapy Start: 10-26-2022 End: 12-06-2024 take 1 tablet by mouth once daily as needed Buspirone 5 mg tablet Discontinued 5 MG PO Daily as needed July 02, 2024 10:58am December 06, 2024 9:20am calcium acetate 667 mg oral capsule (3 sources) calcium acetate (Phoslo) 667 MG capsule Take 1,334 mg by mouth in the morning and 1,334 mg at noon and 1,334 mg in the evening. Take with meals. Active cholecalciferol 0.025 mg oral tablet (8 sources) Vitamin D Start: 07-02-2024 take 1 tablet by mouth once daily Cholecalciferol (Vitamin D3) 25 mcg (1,000 unit) tablet Active 25 MCG PO Daily July 02, 2024 12:00am Complies with drug therapy take 1 capsule by mouth once paradise ly cholecalciferol (Vitamin D-3) 25 MCG (1000 UT) capsule Take 1,000 Units by mouth Daily Active chondroitin sulfates 400 mg / glucosamine hydrochloride 500 mg oral capsule (4 sources) Start: 07-02-2024 take 1 capsule by mouth once daily Eocdsalrxal-Nmajfbryt-Grq C-Mn (Glucosamine Chondroitin Maxstr) 500-400 mg capsule Active CAP PO Daily July 02, 2024 12:00am Complies with drug therapy Coenzyme Q10 (COQ10 PO) (3 sources) Coenzyme Q10 (CO Q10 PO) 1 qd Active CoQ-10 200 MG (2 sources) CoQ-10 200 MG as directed Orally Active docosahexaenoic acid 120 mg / eicosapentaenoic acid 180 mg oral capsule (3 sources) take 1 capsule by mouth once daily fish oil-omega-3 fatty acids 1000 MG capsule Take 2 g by mouth Daily Active María-C - (2 sources) María-C - as dir ected Orally Active Fish Oils (2 sources) take 1 capsule by mouth once daily Fish Oil 1000 MG 1 capsule Orally Once a day Active Garlic (8 sources) Non-Standardiz ed Food Allergenic Extract Start: 07-02-2024 take 1 capsule by mouth once daily Garlic 1,000 mg capsule Active 1000 MG PO Daily July 02, 2024 12:00am Complies with drug therapy Start: 07-02-2024 take 1 capsule by mouth once d aily Garlic 1,000 mg capsule Active 1000 MG PO Daily July 02, 2024 12:00am take 2 capsules by m outh once daily Garlic 1000 MG capsule Take 2 capsules every day by oral route. Active Qfidynawwow-Uxmplpnvd-Ufy C-Mn (Glucosamine Chondroitin Maxstr) 500-400 mg capsule (1 source) Start: 07-02-2024 take 1 capsule by mouth once daily Nangcrmjquw-Deeacxwsp-Ylb C-Mn (Glucosamine Chondroitin Maxstr) 500-400 mg capsule Active CAP PO Daily July 02, 2024 12:00am Hkcutylgysi-Fqpofcpqu-Lzd C-Mn (Glucosamine-Chondroitin) capsule (3 sources) Glucosamine-Tomás droit-Vit C-Mn (Glucosamine-Chondroitin) capsule 1500/1200 2 qd Active latanoprost 0.05 mg/ml ophthalmic solution (18 sources) Prostaglandin Analog Start: 12-26-2023 take 1 drop(s) into the eye(s) once daily latanoprost (Xalatan) 0.005 % ophthalmic solution INSTILL 1 DROP INTO AFFECTED EYE(S) BY OPHTHALMIC ROUTE ONCE DAILY INTHE EVENING 12/26/2023 Active Start: 07-20-2023 take 1 drop(s) into the eye(s) once daily in the evening Latanoprost 0.005 % drops Active 1 DROPS OPHTHALMIC Daily July 20, 2023 12:00am FreeTextSi drop into affected eye in the evening Ophthalmic Once a day; Note: Source Status: Taking; Provider: Maia Yanez ( ) Complies with drug therapy take 1 drop(s) into the eye(s) once daily in the evening Latanoprost 0.005 % 1 drop into affected eye in the evening Ophthalmic Once a day Active lutein 20 mg oral capsule (10 sources) Start: 07-20-2023 take 1 capsule by mouth once daily Lutein 20 mg capsule Active 20 MG PO Daily July 20, 2023 12:00am give with meal/snack Complies with drug therapy Lutein 20 MG tab let Take by mouth Active take 1 tablet by mouth once eliza y Lutein 20 MG 1 tablet with a meal Orally Once a day Active Multiple Vitamin (multivitamin) tablet (3 sources) take 1 tablet by mouth once daily Multiple Vitamin (multivitamin) tablet Take 1 tablet by mouth Daily Active Multivitamin preparation (2 sources) take 1 tablet by mouth once daily Multivitamin - 1 tablet Orally Once a day Active Multivitamin tablet (5 sources) Start: 07-20-2023 take 1 tablet by mouth once daily Multivitamin tablet Active 1 TAB PO Daily July 20, 2023 12:00am Complies with drug therapy Start: 07-20-2023 take 1 tablet by shanice th once daily Multivitamin tablet Active 1 TAB PO Daily July 20, 2023 12:00am [place] 3 1200 MG (2 sources) take 1 capsule by mo uth once daily [place] 3 1200 MG 1 capsule Orally Once a day Active [place]-3 Fatty Acids (5 sources) Start: 07-20-2023 take 1 capsule by mouth once daily [place]-3 Fatty Acids 1,250 mg capsule Active 1250 MG PO Daily July 20, 2023 12:00am Complies with drug therapy Start: 07-20-2023 take 1 capsule by mouth once d aily [place]-3 Fatty Acids 1,250 mg capsule Active 1250 MG PO Daily July 20, 2023 12:00am Turmeric extract (10 sources) Start: 07-20-2023 take 1 capsule by mo uth once daily Turmeric 400 mg capsule Active 400 MG PO Daily July 20, 2023 12:00am Complies with drug therapy Start: 07-20-2023 take 1 capsule by mo uth once daily Turmeric 400 mg capsule Active 400 MG PO Daily July 20, 2023 12:00am Turmeric 400 MG capsule Take by mouth Active Turmeric 400 MG as directed Orally Active ubidecarenone 100 mg oral capsule (5 sources) Start: 07-20-2023 Coenzyme Q10 (Coq-10) 100 mg capsule Active 100 MG PO Daily July 20, 2023 12:00am Complies with drug therapy Vitamin B Complex tablet (5 sources) Start: 07-02-2024 take 1 tablet by mouth once daily Vitamin B Complex tablet Active 1 TAB PO Daily July 02, 2024 12:00am Complies with drug therapy Start: 07-02-2024 take 1 tablet by mouth once da ha Vitamin B Complex tablet Active 1 TAB PO Daily July 02, 2024 12:00am Completed/Discontinued Medications Medication Drug Class(es) Dates Sig (Normalized) Sig (Original) Ascorbate Calcium-Bioflavonoi d (María-C With Bioflavonoids) 1,000-200 mg tablet (5 sources) Start: 07-20-2023 End: 11-07-2024 Ascorbate Calcium-Bioflavonoid (María-C With Bioflavonoids) 1,000-200 mg tablet Discontinued 1 TAB PO Daily July 20, 2023 12:00am November 07, 2024 9:48am Start: 07-20-2023 Ascorbate Calc ium-Bioflavonoid (María-C With Bioflavonoids) 1,000-200 mg tablet Active 1 TAB PO Daily July 20, 2023 12:00am Complies with drug therapy Start: 07-20-2023 Ascorbate Calc ium-Bioflavonoid (María-C With Bioflavonoids) 1,000-200 mg tablet Active 1 TAB PO Daily July 20, 2023 12:00am escitalopram 10 mg oral tablet (5 sources) Serotonin Reuptake Inhibitor Start: 12-06-2023 End: 07-02-2024 take 1 tablet by mouth once daily Escitalopram Oxalate 10 mg tablet Discontinued 10 MG PO Daily December 06, 2023 12:00am July 02, 2024 10:59am HYLAN G-F 20 (18 sources) Start: 10-27-2022 Synvisc One Oct, 48 mg Problems Active Problems Problem Classification Problem Date Documented Date Episodic/Chronic Anxiety disorders (20 sources) Generalized anxiety disorder; Translations: [Generalized anxiety disorder] Onset: 04-25-2018 Chronic Conditions associated with dizziness or vertigo (20 sources) Dizziness and giddiness; Translations: [Benign paroxysmal vertigo, bilateral] Onset: 12-03-2021 Episodic Disorders of lipid metabolism (17 sources) Hyperlipidemia, group A; Translations: [Pure hypercholesterolemia, unspecified] Onset: 04-25-2018 Chronic Diverticulosis and diverticulitis (6 sources) Diverticular disease; Translations: [Diverticulosis of intestine, part unspecified, without perforation or abscess without bleeding] Onset: 03-24-2010 08-17-2024 Chronic Esophageal disorders (14 sources) Gastro-esophageal reflux disease with esophagitis; Translations: [Gastroesophageal reflux disease with esophagitis without hemorrhage] 07-21-2023 Chronic Glaucoma (6 sources) Glaucoma; Translations: [Unspecified glaucoma] Onset: 02-06-2016 08-17-2024 Chronic Heart valve disorders (20 sources) Presence of prosthetic heart valve; Translations: [History of heart valve repair with prosthesis] Onset: 12-02-2021 Chronic Hyperplasia of prostate (14 sources) Lower urinary tract symptoms due to benign prostatic hypertrophy; Translations: [Benign prostatic hyperplasia with lower urinary tract symptoms] Chronic Malaise and fatigue (2 sources) Other fatigue Episodic Osteoarthritis (20 sources) Bilateral arthritis of knees; Translations: [Bilateral primary osteoarthritis of knee] Onset: 02-06-2016 Chronic Other ear and sense organ disorders (5 sources) Sensorineural hearing loss; Translations: [Unspecified sensorineural hearing loss] 08-15-2024 Chronic Other ear and sense organ disorders (2 sources) Impacted cerumen in left ear; Translations: [Impacted cerumen, left ear] 08-20-2024 Episodic Other injuries and conditions due to external causes (2 sources) Foreign body in right ear; Translations: [Foreign body in right ear, initial encounter] 08-20-2024 Episodic Other injuries and conditions due to external causes (4 sources) Foreign body in right ear, initial encounter; Translations: [Acute foreign body of right ear canal] 08-15-2024 Episodic Other male genital disorders (3 sources) Male erectile dysfunction, unspecified; Translations: [Impotence of organic origin] Onset: 04-04-2018 08-17-2024 Chronic Other non-traumatic joint disorders (1 source) Pain in right knee Episodic Other non-traumatic joint disorders (1 source) Pain in left knee Episodic Other screening for suspected conditions (not mental disorders or infectious disease) (8 sources) Encounter for screening for malignant neoplasm of prostate; Translations: [Other specified abnormal findings of blood chemistry] Onset: 12-05-2021 Episodic Otitis media and related conditions (5 sources) Chronic eustachian tube salpingitis; Translations: [Chronic Eustachian salpingitis, unspecified ear] 08-15-2024 Chronic Residual codes; unclassified (6 sources) Other specified postprocedural states; Translations: [Personal history of surgery to heart and great vessels, presenting hazards to health] Episodic Residual codes; unclassified (12 sources) History of repair of mitral valve; Translations: [Other specified postprocedural states] Onset: 02-06-2016 12-06-2023 Episodic Spondylosis; intervertebral disc disorders; other back problems (20 sources) Lumbar spondylosis; Translations: [Spondylosis without myelopathy or radiculopathy, lumbar region] Chronic Viral infection (4 sources) COVID-19; Translations: [COVID-19] Onset: 09-01-2021 Past or Other Problems Problem Classification Problem Date Documented Da te Episodic/Chronic E Codes: Fall (1 source) Fall on same level, unspecified, initial encounter; Translations: [FALL SAME LEVEL UNSPECIFIED INITIAL] Onset: 01-24-2022 Episodic Esophageal disorders (4 sources) Esophageal disorders; Translations: [Gastroesophageal reflux disease with esophagitis without hemorrhage] Immunizations and screening for infectious disease (1 source) Encounter for immunization; Translations: [ENCOUNTER FOR IMMUNIZATION] Onset: 09-02-2021 Episodic Other aftercare (1 source) [facility] (current) use of aspirin; Translations: [CARE HOME CURRENT USE OF ASPIRIN] Onset: 01-24-2022 Episodic Other lower respiratory disease (1 source) Shortness of breath; Translations: [SHORTNESS OF BREATH] Onset: 01-24-2022 Episodic Results Test Name Value Interpretation Reference Range Facil ity X-ray reportOrdered By: Naif Iyer on 11-07-2024 Study report [facility] [place] [address] XRay Report Signed Patient: Quentin Davis MR#: [id number] : 1945 Acct:[id number] Age/Sex: 79 / M ADM Date: 5 Loc: [facility] Room: Type: [facility] Attending Dr: Ha Junior DO Copies to: Ha Junior DO~ Ordering Provider: Ha Junior DO Date of Service: 11/07/24 XR/XR knee BI 4V: M17.0 - Bilateral primary osteoarthritis of knee 4 views both knees COMPARISON: 10/27/2022 HISTORY: Bilateral knee pain for years Severe degenerative changes greatest in medial compartments redemonstrated. Hmbt-rl-gfmw contact. Small joint effusions. No acute bony process. Similar degenerative subluxation. XR/XR knee BI 4V IMPRESSION: Mild progression of extensive degeneration greatest in medial compartments. Impression dictated by: Stuart Iyer M.D. 11/07/2024 2:54 PM Dictation Location: [place] [address] Transcribed By: [facility] 11/07/24 1454 Dictated By: Stuart Iyer DO 11/07/24 145 Signed By: 11/07/24 1454 [facility] XR knee BI 4Von 11-07-2024 XR knee BI 4V [facility] [address] [place] [address] XRay Report Signed Patient: Quentin Davis MR#: [id number] : 1945 Acct:[id number] Age/Sex: 79 / M ADM Date: 11/07/24 Loc: [facility] Room: Type: [facility] Attending Dr: Ha Junior DO Copies to: Ha Junior DO Ordering Provider: Ha Junior DO Date of Service: 11/07/24 XR/XR knee BI 4V: M17.0 - Bilateral primary osteoarthritis of knee 4 views both knees COMPARISON: 10/27/2022 HISTORY: Bilateral knee pain for years Severe degenerative changes greatest in medial compartments redemonstrated. Ykvt-oa-npjl contact. Small joint effusions. No acute bony process. Similar degenerative subluxation. XR/XR knee BI 4V IMPRESSION: Mild progression of extensive degeneration greatest in medial compartments. Impression dictated by: Stuart Iyer M.D. 11/07/2024 2:54 PM Dictation Location: [place] [address] Transcribed By: [facility] 11/07/24 1454 Dictated By: Stuart Iyer DO 11/07/24 1452 Signed By: 11/07/24 1454 Normal [facility] CBC AUTO DIFFon 01-21-2022 BASO # 0.0 103/ul Normal 0.0-0.1 [facility] Comment on above: Performed By: #### C BC #### [facility] [address] [place] [address] Dr. Bhargavi See Basophils/100 WBC (Bld) 0.5 % Normal 0.2-2.0 [facility] Comment on above: Performed By: #### C BC #### [facility] [address] [place] [address] Dr. Bhargvai See EO # 0.0 103/ul Normal 0.0-0.7 [facility] Comment on above: Performed By: #### C BC #### [facility] [address] [place] [address] Dr. Bhargavi See Eosinophils/100 WBC (Bld) 0.3 % Critically low 0.9-7.0 [facility] Comment on above: Performed By: #### C BC #### [facility] [address] [place] [address] Dr. Bhargavi See Erythrocyte distribution width (RBC) [Ratio] 12.3 % Normal 11.0-15.0 [facility] Comment on above: Performed By: #### C BC #### [facility] [address] [place] [address] Dr. Bhargavi See Hematocrit (Bld) [Volume fraction] 48.4 % Normal 42.0-54.0 [facility] Comment on above: Performed By: #### C BC #### [facility] [address] [place] [address] Dr. Bhargavi See Hemoglobin (Bld) [Mass/Vol] 16.5 g/dL Normal 14.0-18.0 [facility] Comment on above: Performed By: #### C BC #### [facility] [address] [place] [address] Dr. Bhargavi See IG # 0.02 10e3/ul Normal 0.00-0.03 [facility] Comment on above: Performed By: #### C BC #### [facility] [address] [place] [address] Dr. Bhargavi See IG % 0.3 % Normal 0.0-0.5 [facility] Comment on above: Performed By: #### C BC #### [facility] [address] [place] [address] Dr. Bhargavi See LYMPH # 0.8 103/ul Critically low 1.2-3.8 [facility] Comment on above: Performed By: #### C BC #### [facility] [address] [place] [address] Dr. Bhargavi See Lymphocytes/100 WBC (Bld) 13.5 % Critically low 20.5-60.0 [facility] Comment on above: Performed By: #### C BC #### [facility] [address] [place] [address] Dr. Bhargavi See MANUAL DIFF REQ NO Normal [facility] Comment on above: Performed By: #### C BC #### [facility] [address] [place] [address] Dr. Bhargavi See MCH (RBC) [Entitic mass] 31.4 pg Normal 25.9-34.0 [facility] Comment on above: Performed By: #### C BC #### [facility] [address] [place] [address] Dr. Bhargavi See MCHC (RBC) [Mass/Vol] 34.1 g/dL Normal 29.9-35.2 [facility] Comment on above: Performed By: #### C BC #### [facility] [address] [place] [address] Dr. Bhargavi See MCV (RBC) [Entitic vol] 92.0 fL Normal 80.0-94.0 [facility] Comment on above: Performed By: #### C BC #### [facility] [address] [place] [address] Dr. Bhargavi See MONO # 0.3 103/ul Normal 0.3-0.8 [facility] Comment on above: Performed By: #### C BC #### [facility] [address] [place] [address] Dr. Bhargavi See Monocytes/100 WBC (Bld) 5.7 % Normal 1.7-12.0 [facility] Comment on above: Performed By: #### C BC #### [facility] [address] [place] [address] Dr. Bhargavi See NEUT # 4.7 103/ul Normal 1.4-6.5 [facility] Comment on above: Performed By: #### C BC #### [facility] [address] [place] [address] Dr. Bhargavi See Neutrophils/100 WBC (Bld) 79.7 % Critically high 43.0-75.0 [facility] Comment on above: Performed By: #### C BC #### [facility] [address] [place] [address] Dr. Bhargavi See Platelet mean volume (Bld) [Entitic vol] 10.4 fL Normal 9.5-13.5 [facility] Comment on above: Performed By: #### C BC #### [facility] [address] [place] [address] Dr. Bhargavi See PLT 171 103/ul Normal 150-450 [facility] Comment on above: Performed By: #### C BC #### [facility] [address] [place] [address] Dr. Bhargavi See RBC 5.26 106/ul Normal 4.70-6.10 [facility] Comment on above: Performed By: #### C BC #### [facility] [address] [place] [address] Dr. Bhargavi See WBC 5.8 103/ul Normal 4.0-11.0 [facility] Comment on above: Performed By: #### C BC #### [facility] [address] [place] [address] HEAD WO CONon 01-21-2022 CT HEAD WO CON EXAMINATION: CT HEAD WO CON, 01/21/2022 11:07 AM EST HISTORY: BENIGN PAROXYSMAL VERTIGO, UNSPECIFIED EAR COMPARISON: None. TECHNIQUE: CT scan of the head was performed without IV contrast. CT dose reduction technique was used, including Automated Exposure Control. FINDINGS: BRAIN: Moderate generalized atrophy. Mild to moderate white matter hypoattenuation. Chronic small vessel ischemic changes are favored. No acute intraparenchymal hemorrhage or mass CSF SPACES: No hydrocephalus, subarachnoid hemorrhage, or mass. Appropriate for age. SKULL: No fracture, mass, or other significant visible lesion. SINUSES: No significant mucosal thickening or fluid on the limited views. ORBITS: No appreciable abnormality on the limited views. OTHER: Negative IMPRESSION: Atrophy and white matter disease. Chronic small vessel ischemic changes are favored Electronically authenticated by: NAS KEEN Date: 2022-01-21 12:09 Normal [facility] ER URINE PROFILEon 2 Bilirubin Ql (U) Negative Normal NEGATIVE [facility] Comment on above: Performed By: #### E RUR #### [facility] [address] [place] [address] Dr. Bhargavi See Clarity (U) CLEAR Normal CLEAR [facility] Comment on above: Performed By: #### E RUR #### [facility] [address] [place] [address] Dr. Bhargavi See Color (U) YELLOW Normal YELLOW [facility] Comment on above: Performed By: #### E RUR #### [facility] [address] [place] [address] Dr. Bhargavi GARCIA A micrscopic examination will be performed if indicated. Normal [facility] Comment on above: Performed By: #### E RUR #### [facility] [address] [place] [address] Dr. Bhargavi See Glucose Ql (U) Negative Normal NEGATIVE [facility] Comment on above: Performed By: #### E RUR #### [facility] [address] [place] [address] Dr. Bhargavi See Hemoglobin Ql (U) Negative Normal NEGATIVE [facility] Comment on above: Performed By: #### E RUR #### [facility] [address] [place] [address] Dr. Bhargavi See Ketones Ql (U) TRACE Abnormal NEGATIVE [facility] Comment on above: Performed By: #### E RUR #### [facility] [address] [place] [address] Dr. Bhargavi See LEUKOCYTES Negative Normal NEGATIVE [facility] Comment on above: Performed By: #### E RUR #### [facility] [address] [place] [address] Dr. Bhargavi See Nitrite Ql (U) Negative Normal NEGATIVE [facility] Comment on above: Performed By: #### E RUR #### [facility] [address] [place] [address] Dr. Bhargavi See pH (U) 5.5 [pH] Normal 5-9 [facility] Comment on above: Performed By: #### E RUR #### [facility] [address] [place] [address] Dr. Bhargavi See SPEC GRAVITY >=1.030 Abnormal 1.005-<=1.025 [facility] Comment on above: Performed By: #### E RUR #### [facility] [address] [place] [address] Dr. Bhargavi See UA PROTEIN Negative Normal NEGATIVE/ TRACE [facility] Comment on above: Performed By: #### E RUR #### [facility] [address] [place] [address] Dr. Bhargavi See UR MICRO IND NOT INDICATED Normal [facility] Comment on above: Performed By: #### E RUR #### [facility] [address] [place] [address] Dr. Bhargavi See Urobilinogen Qn (U) 0.2 {Jean-Paul'U}/dL Normal 0.2 - 1. 0 [facility] Comment on above: Performed By: #### E RUR #### [facility] [address] [place] [address] Dr. Bhargavi See LACTATE/LACTIC ACIDon 2021 Lactate [Moles/Vol] 1.8 mmol/L Normal 0.4-1.9 [facility] Comment on above: Performed By: #### L ACT #### [facility] [address] [place] [address] Dr. Bhargavi See PROF 14(COMP METB)on 022 Albumin [Mass/Vol] 4.0 g/dL Normal 3.4-5.0 [facility] Comment on above: Performed By: #### C EDOUARD HSTROPN #### [facility] [address] [place] [address] Dr. Bhargavi See Albumin/Globulin [Mass ratio] 1.3 {ratio} Normal [facility] Comment on above: Performed By: #### C EDOUARD HSTROPN #### [facility] [address] [place] [address] Dr. Bhargavi See ALP [Catalytic activity/Vol] 102 U/L Normal 46-116 [facility] Comment on above: Performed By: #### C EDOUARD HSTROPN #### [facility] [address] [place] [address] Dr. Bhargavi See ALT [Catalytic activity/Vol] 24 U/L Normal 16-63 [facility] Comment on above: Performed By: #### C EDOUARD HSTROPN #### [facility] [address] [place] [address] Dr. Bhargavi See Anion gap [Moles/Vol] 12.2 mmol/L Normal [facility] Comment on above: Performed By: #### C MP, HSTROPN #### [facility] [address] [address] [address] Bhargavi See AST [Catalytic activity/Vol] 24 U/L Normal 15-37 [facility] Comment on above: Performed By: #### C MP, HSTROPN #### [facility] [address] [address] [address] Bhargavi See Bilirubin [Mass/Vol] 0.9 mg/dL Normal 0.2-1.0 [facility] Comment on above: Performed By: #### C MP, HSTROPN #### [facility] [address] [place] [address] Dr. Bhargavi See Calcium [Mass/Vol] 8.8 mg/dL Normal 8.5-10.1 [facility] Comment on above: Performed By: #### C MP, HSTROPN #### [facility] [address] [address] [address] Bhargavi See Chloride [Moles/Vol] 106 mmol/L Normal 98-107 [facility] Comment on above: Performed By: #### C MP, HSTROPN #### [facility] [address] [address] [address] Bhargavi See CO2 [Moles/Vol] 28.7 mmol/L Normal 21.0-32.0 [facility] Comment on above: Performed By: #### C MP, HSTROPN #### [facility] [address] [address] [address] Bhargavi See Creatinine [Mass/Vol] 0.85 mg/dL Normal 0.70-1.30 [facility] Comment on above: Performed By: #### C MP, HSTROPN #### [facility] [address] [address] [address] Bhargavi See EGFR-AF CITIZ[place] >60 Normal >=60 [facility] Comment on above: Performed By: #### C MP, HSTROPN #### [facility] [address] [address] [address] Bhargavi See EGFR-NON AF CITIZEN [place] >60 Normal >=60 [facility] Comment on above: Performed By: #### C MP, HSTROPN #### [facility] [address] [address] [address] Bhargavi See Globulin (S) [Mass/Vol] 3.1 g/dL Normal [facility] Comment on above: Performed By: #### C MP, HSTROPN #### [facility] [address] [address] [address] Bhargavi See Glucose [Mass/Vol] 106 mg/dL Normal 74-106 [facility] Comment on above: Performed By: #### C MP, HSTROPN #### [facility] [address] [place] [address] Dr. Bhargavi See Potassium [Moles/Vol] 3.9 mmol/L Normal 3.5-5.1 [facility] Comment on above: Performed By: #### C MP, HSTROPN #### [facility] [address] [address] [address] Bhargavi See Protein [Mass/Vol] 7.1 g/dL Normal 6.4-8.2 [facility] Comment on above: Performed By: #### C MP, HSTROPN #### [facility] [address] [address] [address] Bhargavi See Sodium [Moles/Vol] 143 mmol/L Normal 136-145 [facility] Comment on above: Performed By: #### C MP, HSTROPN #### [facility] [address] [address] [address] Bhargavi See Urea nitrogen [Mass/Vol] 21.0 mg/dL Critically high 7.0-18.0 [facility] Comment on above: Performed By: #### C MP, HSTROPN #### [facility] [address] [address] [address] Bhargavi See Urea nitrogen/Creatinine [Mass ratio] 24.7 mg/mg Normal [facility] Comment on above: Performed By: #### C EDOUARD HSTROPN #### [facility] [address] [place] [address] Dr. Bhargavi See TROPONIN, HIGH SENSITIVITYon 01-21-2022 HSTROP 8.0 pg/mL Normal 4.0-76.1 [facility] Comment on above: Result Comment: CUT- OFF POINTS HAVE BEEN ESTABLISHED BASED ON THE FOURTH UNIVERSAL DEFINITIONS OF MYOCARDIAL INFARCTION. THE UPPER REFERENCE LIMIT (URL) OF TROPONIN, DEFINED THE 99TH PERCENTILE OF cTnI DISTRIBUTION IN A REFERENCE POPULATION, HAS BEEN CONFIRMED THE DECISION THRESHOLD FOR RI DIAGNOSIS. Performed By: #### C EDOUARD HSTROPN #### [facility] [address] [place] [address] Dr. Bhargavi See XR CHEST 1 Von 01-21-2022 XR CHEST 1 V EXAMINATION: XR CHEST 1 V HISTORY: SHORTNESS OF BREATH COMPARISON: No relevant comparison available. TECHNIQUE: AP portable erect FINDINGS: LUNGS: No significant pulmonary parenchymal abnormalities. VASCULATURE: No increased pulmonary vasculature. PLEURA: No pneumothorax, effusion, or pleural thickening. CARDIAC: No cardiomegaly or cardiac silhouette abnormality. MEDIASTINUM: No visible mass or adenopathy. Median sternotomy wires BONES: No fracture or visible bone lesion. OTHER: Negative. IMPRESSION: No acute disease. Electronically authenticated by: NAS KEEN Date: 2022-01-21 11:55 Normal [facility] CBC AUTO DIFFon 12-02-2021 BASO # 0.0 103/ul Normal 0.0-0.1 [facility] Comment on above: Performed By: #### C BC #### [facility] [address] [place] [address] Dr. Bhargavi See Basophils/100 WBC (Bld) 0.4 % Normal 0.2-2.0 [facility] Comment on above: Performed By: #### C BC #### [facility] [address] [place] [address] Dr. Bhargavi See EO # 0.1 103/ul Normal 0.0-0.7 [facility] Comment on above: Performed By: #### C BC #### [facility] [address] [address] [address] Bhargavi See Eosinophils/100 WBC (Bld) 1.9 % Normal 0.9-7.0 [facility] Comment on above: Performed By: #### C BC #### [facility] [address] [place] [address] Dr. Bhargavi See Erythrocyte distribution width (RBC) [Ratio] 12.4 % Normal 11.0-15.0 [facility] Comment on above: Performed By: #### C BC #### [facility] [address] [place] [address] Dr. Bhargavi See Hematocrit (Bld) [Volume fraction] 48.8 % Normal 42.0-54.0 [facility] Comment on above: Performed By: #### C BC #### [facility] [address] [place] [address] Dr. Bhargavi See Hemoglobin (Bld) [Mass/Vol] 15.8 g/dL Normal 14.0-18.0 [facility] Comment on above: Performed By: #### C BC #### [facility] [address] [place] [address] Dr. Bhargavi See IG # 0.02 10e3/ul Normal 0.00-0.03 [facility] Comment on above: Performed By: #### C BC #### [facility] [address] [place] [address] Dr. Bhargavi See IG % 0.4 % Normal 0.0-0.5 [facility] Comment on above: Performed By: #### C BC #### [facility] [address] [place] [address] Dr. Bhargavi See LYMPH # 0.9 103/ul Critically low 1.2-3.8 [facility] Comment on above: Performed By: #### C BC #### [facility] [address] [place] [address] Dr. Bhargavi See Lymphocytes/100 WBC (Bld) 16.4 % Critically low 20.5-60.0 [facility] Comment on above: Performed By: #### C BC #### [facility] [address] [place] [address] Dr. Bhargavi See MANUAL DIFF REQ NO Normal [facility] Comment on above: Performed By: #### C BC #### [facility] [address] [place] [address] Dr. Bhargavi See MCH (RBC) [Entitic mass] 30.9 pg Normal 25.9-34.0 [facility] Comment on above: Performed By: #### C BC #### [facility] [address] [place] [address] Dr. Bhargavi See MCHC (RBC) [Mass/Vol] 32.4 g/dL Normal 29.9-35.2 [facility] Comment on above: Performed By: #### C BC #### [facility] [address] [place] [address] Dr. Bhargavi See MCV (RBC) [Entitic vol] 95.5 fL Critically high 80.0-94.0 [facility] Comment on above: Performed By: #### C BC #### [facility] [address] [place] [address] Dr. Bhargavi See MONO # 0.6 103/ul Normal 0.3-0.8 [facility] Comment on above: Performed By: #### C BC #### [facility] [address] [place] [address] Dr. Bhargavi See Monocytes/100 WBC (Bld) 10.2 % Normal 1.7-12.0 [facility] Comment on above: Performed By: #### C BC #### [facility] [address] [place] [address] Dr. Bhargavi See NEUT # 4.0 103/ul Normal 1.4-6.5 [facility] Comment on above: Performed By: #### C BC #### [facility] [address] [place] [address] Dr. Bhargavi See Neutrophils/100 WBC (Bld) 70.7 % Normal 43.0-75.0 [facility] Comment on above: Performed By: #### C BC #### [facility] [address] [place] [address] Dr. Bhargavi See Platelet mean volume (Bld) [Entitic vol] 10.4 fL Normal 9.5-13.5 [facility] Comment on above: Performed By: #### C BC #### [facility] [address] [place] [address] Dr. Bhargavi See PLT 151 103/ul Normal 150-450 [facility] Comment on above: Performed By: #### C BC #### [facility] [address] [place] [address] Dr. Bhargavi See RBC 5.11 106/ul Normal 4.70-6.10 [facility] Comment on above: Performed By: #### C BC #### [facility] [address] [place] [address] Dr. Bhargavi See WBC 5.7 103/ul Normal 4.0-11.0 [facility] Comment on above: Performed By: #### C BC #### [facility] [address] [place] [address] Dr. Bhargavi See PROF CHEM 8 (BAS METB)on Anion gap [Moles/Vol] 8.1 mmol/L Normal [facility] Comment on above: Performed By: #### B MP #### [facility] [address] [place] [address] Dr. Bhargavi See Calcium [Mass/Vol] 8.6 mg/dL Normal 8.5-10.1 [facility] Comment on above: Performed By: #### B MP #### [facility] [address] [place] [address] Dr. Bhargavi See Chloride [Moles/Vol] 107 mmol/L Normal 98-107 [facility] Comment on above: Performed By: #### B MP #### [facility] [address] [place] [address] Dr. Bhargavi See CO2 [Moles/Vol] 30.4 mmol/L Normal 21.0-32.0 [facility] Comment on above: Performed By: #### B MP #### [facility] [address] [place] [address] Dr. Bhargavi See Creatinine [Mass/Vol] 0.92 mg/dL Normal 0.70-1.30 [facility] Comment on above: Performed By: #### B MP #### [facility] [address] [address] [address] Bhargavi See EGFR-AF CITIZ[place] >60 Normal >=60 [facility] Comment on above: Performed By: #### B MP #### [facility] [address] [address] [address] Bhargavi See EGFR-NON AF CITIZ[place] >60 Normal >=60 [facility] Comment on above: Performed By: #### B MP #### [facility] [address] [address] [address] Bhargavi See Glucose [Mass/Vol] 81 mg/dL Normal 74-106 [facility] Comment on above: Performed By: #### B MP #### [facility] [address] [address] [address] Bhargavi See Potassium [Moles/Vol] 4.5 mmol/L Normal 3.5-5.1 [facility] Comment on above: Performed By: #### B MP #### [facility] [address] [address] [address] Bhargavi See Sodium [Moles/Vol] 141 mmol/L Normal 136-145 [facility] Comment on above: Performed By: #### B MP #### [facility] [address] [address] [address] Bhargavi See Urea nitrogen [Mass/Vol] 19.0 mg/dL Critically high 7.0-18.0 [facility] Comment on above: Performed By: #### B MP #### [facility] [address] [address] [address] Bhargavi See Urea nitrogen/Creatinine [Mass ratio] 20.7 mg/mg Normal [facility] Comment on above: Performed By: #### B MP #### [facility] [address] [address] [address] Bhargavi See Vital Signs Date Time Vital Sign Value Performing Clinician Facility 12-06-2024 09:06-0400 Body height 177.8 cm Cleveland Ball DO Work Phone: [facility] 12-06-2024 09:06-0400 Body mass index (BMI) [Ratio] 24.3 kg/m2 Cleveland Ball DO Work Phone: [facility] 12-06-2024 09:06-0400 Body weight 77.11 kg Cleveland Ball DO Work Phone: [facility] 12-06-2024 09:06-0400 Diastolic blood pressure 76 mm[Hg] Cleveland Ball DO Work Phone: [facility] 12-06-2024 09:06-0400 Heart rate 80 /min Cleveland Ball DO Work Phone: [facility] 12-06-2024 09:06-0400 Respiratory rate 12 /min Cleveland Ball DO Work Phone: [facility] 12-06-2024 09:06-0400 Systolic blood pressure 126 mm[Hg] Cleveland Ball DO Work Phone: [facility] 08-20-2024 14:15-0400 Body height 177.8 cm Ely Hitlon MD Work Phone: [facility] 08-20-2024 14:15-0400 Body mass index (BMI) [Ratio] 24.39 kg/m2 Ely Hilton MD Work Phone: [facility] 08-20-2024 14:15-0400 Body weight 77.11 kg Ely Hilton MD Work Phone: [facility] 08-15-2024 11:33-0400 Body height 177.8 cm Cleveland Ball DO Work Phone: [facility] 08-15-2024 11:33-0400 Body mass index (BMI) [Ratio] 24.3 kg/m2 Cleveland Ball DO Work Phone: [facility] 08-15-2024 11:33-0400 Body weight 77.11 kg Cleveland Ball DO Work Phone: [facility] 08-15-2024 11:33-0400 Diastolic blood pressure 74 mm[Hg] Cleveland Ball DO Work Phone: [facility] 08-15-2024 11:33-0400 Heart rate 72 /min Cleveland Ball DO Work Phone: [facility] 08-15-2024 11:33-0400 Respiratory rate 12 /min Cleveland Ball DO Work Phone: [facility] 08-15-2024 11:33-0400 Systolic blood pressure 124 mm[Hg] Cleveland Ball DO Work Phone: [facility] 07-02-2024 11:06-0400 Body height 177.8 cm [facility] 07-02-2024 11:06-0400 Body mass index (BMI) [Ratio] 24.7 kg/m2 [facility] 07-02-2024 11:06-0400 Body weight 78.01 kg [facility] 07-02-2024 11:06-0400 Diastolic blood pressure 70 mm[Hg] [facility] 07-02-2024 11:06-0400 Heart rate 67 /min [facility] 07-02-2024 11:06-0400 Respiratory rate 18 /min [facility] 07-02-2024 11:06-0400 SaO2% (BldA) [Mass fraction] 97 % [facility] 07-02-2024 11:06-0400 Systolic blood pressure 126 mm[Hg] [facility] 12-21-2022 10:00-0400 Body height 177.8 cm Renata Carvalho Other [employer] [facility] [employer] Other 12-21-2022 10:00-0400 Body mass index (BMI) [Ratio] 25.11 kg/m2 Renata Carvalho Other [employer] [facility] [employer] Other 12-21-2022 10:00-0400 Body weight 79.38 kg Renata Carvalho Other [employer] Other 12-21-2022 10:00-0400 Diastolic blood pressure 72 mm[Hg] Renata Carvalho Other [facility] Other 12-21-2022 10:00-0400 SaO2% (BldA) [Mass fraction] 96 % Renata Carvalho Other [facility] Other 12-21-2022 10:00-0400 Systolic blood pressure 126 mm[Hg] Renata Carvalho Other [facility] Other 12-02-2022 09:30-0400 Body height 177.8 cm Cleveland Ball Other [facility] Other 12-02-2022 09:30-0400 Body mass index (BMI) [Ratio] 24.73 kg/m2 Cleveland Ball Other [facility] Other 12-02-2022 09:30-0400 Body weight 78.2 kg Cleveland Ball Other [facility] Other 12-02-2022 09:30-0400 Diastolic blood pressure 70 mm[Hg] Cleveland Ball Other [facility] Other 12-02-2022 09:30-0400 Respiratory rate 12 /min Cleveland Ball Other [facility] Other 12-02-2022 09:30-0400 Systolic blood pressure 107 mm[Hg] Cleveland Ball Other [facility] Other 10-27-2022 09:00-0400 Body height 177.8 cm Ha Junior Other [facility] Other 10-27-2022 09:00-0400 Body mass index (BMI) [Ratio] 24.82 kg/m2 Ha Junior Other [facility] Other 10-27-2022 09:00-0400 Body weight 78.47 kg Ha Junior Other [facility] Other 10-26-2022 09:15-0400 Body height 177.8 cm Cleveland Ball Other [facility] Other 10-26-2022 09:15-0400 Body mass index (BMI) [Ratio] 24.85 kg/m2 Cleveland Ball Other [facility] Other 10-26-2022 09:15-0400 Body weight 78.56 kg Cleveland Ball Other [facility] Other 10-26-2022 09:15-0400 Diastolic blood pressure 75 mm[Hg] Cleveland Ball Other [facility] Other 10-26-2022 09:15-0400 Respiratory rate 12 /min Cleveland Ball Other [facility] Other 10-26-2022 09:15-0400 Systolic blood pressure 108 mm[Hg] Cleveland Ball Other [facility] Other Encounters Encounter Date Encounter Type Care Provider Facility Start: 12-06-2024 End: 12-06-2024 ambulatory Cleveland Ball DO Work Phone: [facility] Work Phone: Start: 12-06-2024 End: 12-06-2024 Patient encounter procedure Cleveland Ball DO -[facility] Work Phone: Start: 11-07-2024 End: 11-07-2024 ambulatory Cleveland Ball DO Work Phone: [facility] Work Phone: Start: 11-07-2024 End: 11-07-2024 Patient encounter procedure Ha Whitaker Sandi DO -[facility] Work Phone: Start: 11-07-2024 End: 11-07-2024 Patient encounter procedure Ha Junior DO -[facility] Start: 11-07-2024 End: 11-07-2024 ambulatory Cleveland Guajardo DO Work Phone: [facility] Work Phone: Start: 08-20-2024 End: 08-20-2024 Bamboo flowsheet Ely Hilton MD Work Phone: [facility] Start: 08-20-2024 End: 08-20-2024 Bamboo flowsheet Ely Hilton MD Work Phone: [facility] Start: 08-20-2024 End: 08-20-2024 Office outpatient new 30 minutes Ely Hilton MD Work Phone: [facility] Comment on above: Left ear impacted ce rumen (Primary Dx); Foreign body of right ear, initial encounter; Dizziness and giddiness Start: 08-20-2024 End: 08-20-2024 ambulatory ELY HILTON Not Available Start: 08-15-2024 End: 08-15-2024 ambulatory Cleveland Guajardo DO Work Phone: [facility] Work Phone: Start: 08-15-2024 End: 08-15-2024 Patient encounter procedure Cleveland Guajardo DO -[facility] Work Phone: Start: 07-02-2024 End: 07-02-2024 ambulatory [facility] Work Phone: Start: 07-02-2024 End: 07-02-2024 Patient encounter procedure [facility] Work Phone: Start: 12-06-2023 Patient encounter procedure [facility] Start: 06-27-2023 End: 06-27-2023 ambulatory DO Cleveland Guajardo Work Phone: [facility] Work Phone: Start: 06-27-2023 End: 06-27-2023 Patient encounter procedure DO Cleveland Guajardo Work Phone: [facility] Work Phone: Start: 12-22-2022 End: 12-22-2022 ambulatory Rentaa Carvalho Other [facility] Other Start: 12-22-2022 Telephone encounter Renata Ortiz [employer] Start: 12-21-2022 End: 12-21-2022 ambulatory Renata Carvalho Other [facility] Other Start: 12-21-2022 Office outpatient ne w 45 minutes [facility] GARC[facility] Start: 12-13-2022 End: 12-13-2022 ambulatory Cleveland Guajardo Other [facility] Other Start: 12-13-2022 Telephone encounter [facility] Start: 12-10-2022 End: 12-10-2022 ambulatory NON STAFF [facility] Work Phone: Start: 12-10-2022 End: 12-10-2022 Patient encounter procedure DO Ha Junior Work Phone: [facility] Work Phone: Start: 12-02-2022 End: 12-02-2022 ambulatory Cleveland Guajardo Other [facility] Other Start: 12-02-2022 Patient encounter procedure [facility] Start: 11-25-2022 End: 11-25-2022 ambulatory Cleveland Guajardo Other [facility] Other Start: 11-25-2022 Telephone encounter Cleveland Ball [facility] Start: 10-28-2022 End: 10-28-2022 ambulatory Cleveland Guajardo Other [facility] Other Start: 10-28-2022 Telephone encounter Cleveland Guajardo [facility] Start: 10-27-2022 Office outpatient ne w 45 minutes Ah Sandi [facility] Start: 10-27-2022 End: 10-27-2022 ambulatory Ha Sandi Other lettrs Other Start: 10-27-2022 End: 10-27-2022 Patient encounter procedure DO Ha Sandi Work Phone: [facility] Start: 10-26-2022 End: 10-26-2022 ambulatory Cleveland Guajardo Other lettrs Other Start: 10-26-2022 Office outpatient vi sit 25 minutes Cleveland Guajardo [facility] Start: 01-21-2022 End: 01-21-[address] CLEVELAND GUAJARDO Facility:[facility] Start: 12-03-2021 End: 01-14-[address] CLEVELAND GUAJARDO Facility:[facility] Start: 12-02-2021 End: 12-03-[address] CLEVELAND GUAJARDO Facility:[facility] Start: 09-01-2021 End: 09-01-[address] CLEVELAND GUAJARDO Facility:H1 Procedures Date Procedure Procedure Detail Performing Clinician Start: 11-07-2024 X-ray of both knees, four views Cleveland Guajardo DO Work Phone: Start: 10-27-2022 X-ray of both knees DO Ha Sandi Work Phone: Start: 12-02-[address] [place] Comment on above: Performed By: #### P [facility] #### [facility] [address] [place] [address] Dr. Bhargavi See Start: 02-06-2016 History of repair of inguinal hernia History of repair of inguinal hernia Ely Hilton MD Work Phone: Plan of Treatment Date Care Activity Detail Author Start: 11-07-2024 X-ray of both knees, four views XR knee BI 4V [facility] Start: 11-07-2024 XR Knee - bilateral 4 Views [facility] Start: 08-20-2024 End: 08-20-2024 Patient encounter procedure 08/20/2024 2:00 PM EDT Office Visit [facility] [address] [facility] [address] [place] [id number] Ely Hilton MD [address] [facility] [address] [place] [address] Arrived [facility] Comment on above: Arrived Comprehensive metabo lic 2000 panel - Serum or Plasma [facility] Immunizations Immunization Date Immunization Notes Care Provider Fa cility 12-06-2024 influenza, high dose seasonal, preservative-free Cleveland Ball DO Work Phone: [facility] 12-06-2023 influenza, high dose seasonal, preservative-free [facility] 12-02-2022 influenza virus vaccine, unspecified formulation DO Cleveland Ball Work Phone: [facility] 12-02-2022 influenza, high dose seasonal, preservative-free Cleveland Ball Other [employer] [facility] [employer] Other 12-01-2021 influenza virus vaccine, split virus (incl. purified surface antigen) Cleveland Ball Other [employer] [facility] [employer] Other 12-01-2021 influenza virus vaccine, unspecified formulation DO Cleveland Ball Work Phone: [facility] 12-04-2020 pneumococcal polysaccharide vaccine, 23 valent Cleveland Ball Other [facility] 11-27-2020 influenza virus vaccine, split virus (incl. purified surface antigen) Cleveland Ball Other [employer] Other 11-27-2020 influenza virus vaccine, unspecified formulation DO Cleveland Ball Work Phone: [facility] 05-15-2020 COVID-19 Vaccine Moderna - Documentation Purposes Only Cleveland Guajardo Other [facility] 04-16-2020 COVID-19 Vaccine Moderna - Documentation Purposes Only Cleveland Guajardo Other [facility] 12-05-2019 pneumococcal conjuga te vaccine, 13 valent Cleveland Guajardo Other [facility] 11-26-2019 influenza virus vaccine, split virus (incl. purified surface antigen) Cleveland Guajardo Other [facility] [employer] Other 11-26-2019 influenza virus vaccine, unspecified formulation DO Cleveland Guajardo Work Phone: [facility] 11-17-2016 diphtheria, tetanus toxoids and acellular pertussis vaccine, unspecified formulation Cleveland Guajardo Other [facility] Payers Date Payer Category Payer Self-pay 2024 Private Health Insurance [facility] [id number] 2011 Medicare MEDICARE ..[id number] 1959 Medicare [id number] 1959 Private Health Insurance [id number] 1947 Unknown [id number] 1947 Unknown [id number] 1947 Unknown [id number] 1947 Unknown [id number] 1947 Unknown [id number] Unknown [id number] Social History Date Type Detail Facility Start: 08-20-2024 Sex Assigned At N [facility] [employer] Other Start: 1945 Sex Assigned At Male F [facility] Start: 07-21-2023 End: 08-20-2024 Tobacco smoking status MDIS Never smoked tobacco (finding) [facility] Start: 07-02-2024 Sex Male (finding) [facility] Tobacco smoking status [facility] Tobacco smoking consumption unknown [facility] Start: 1945 Sex assigned at Not on file [facility] Start: 08-20-2024 Tobacco use and exposure Smokeless tobacco non-user [facility] Start: 08-20-2024 Alcoholic beverage intake Lifetime non-drinker (finding) [facility] Start: 08-20-2024 History of Social function [facility] Clinical Notes 10-26-2022 to 11-07-2024 Note Date & Type Note Facility 11-07-2024 Evaluation note Diagnosis Onset Date Resolution Bilateral primary osteoarthritis of knee acute November 07, 2024 9:32am MARANDA (generalized anxiety disorder) acute December 06 8:57am Gastroesophageal reflux disease with esophagitis without hemorrhage acute December 06, 2024 8:57am H/O mitral valve repair acute O ctober 2024 8:57am Medicare annual wellness visit, subsequent acute December 06, 2024 8:57am Screening PSA (prostate specific antigen) acute December 06, 2024 8:57am [facility] Work Phone: 1(827) 742-364506-30-2025 History of Present illness Narrative* Ely Hilton MD - 08/20/2024 2:00 PM EDT Images from the original note were not included. Subjective Patient ID: Quentin Davis is a 79 y.o. male who presents for Ear Problem Pt having lightheadedness when stands Review of Systems All other systems reviewed and are negative. No family history on file. Active Ambulatory Problems Diagnosis Date Noted Anxiety 04/25/2018 Diverticular disease 02/06/2016 Diverticulosis of colon 03/24/2010 Glaucoma 02/06/2016 History of repair of inguinal hernia 02/06/2016 History of repair of mitral valve 02/06/2016 Hyperlipidemia 04/25/2018 Male erectile dysfunction, unspecified 04/04/2018 Mitral valve disease 08/17/2024 Osteoarthritis 02/06/2016 Primary open-angle glaucoma, bilateral, mild stage 08/17/2024 Resolved Ambulatory Problems Diagnosis Date Noted No Resolved Ambulatory Problems Past Medical History: Diagnosis Date Ear problems History reviewed. No pertinent surgical history. Allergies Allergen Reactions Sulfamethoxazole Other Reaction(s): other Ciprofloxacin Current Outpatient Medications on File Prior to Visit Medication Sig Dispense Refill aspirin (Aspirin Adult Low Dose) 81 MG EC tablet Take 81 mg by mouth Daily B Complex-C (b complex-vitamin c) tablet Take 1 tablet by mouth Daily busPIRone (Buspar) 5 MG tablet Take by mouth in the morning and before bedtime. calcium acetate (Phoslo) 667 MG capsule Take 1,334 mg by mouth in the morning and 1,334 mg at noon and 1,334 mg in the evening. Take with meals. cholecalciferol (Vitamin D-3) 25 MCG (1000 UT) capsule Take 1,000 Units by mouth Daily Coenzyme Q10 (COQ10 PO) 1 qd fish oil-omega-3 fatty acids 1000 MG capsule Take 2 g by mouth Daily Garlic 1000 MG capsule Take 2 capsules every day by oral route. Drjstqgjczm-Keybdgron-Vdp C-Mn (Glucosamine-Chondroitin) capsule 1500/1200 2 qd latanoprost (Xalatan) 0.005 % ophthalmic solution INSTILL 1 DROP INTO AFFECTED EYE(S) BY OPHTHALMICROUTE ONCE DAILY INTHE EVENING Lutein 20 MG tablet Take by mouth Multiple Vitamin (multivitamin) tablet Take 1 tablet by mouth Daily Turmeric 400 MG capsule Take by mouth No current facility-administered medications on file prior to visit. Objective Last Recorded Vitals There were no vitals filed for this visit. ENT Physical Exam Ear Ear comments: RT - HAWKINS dome and mult hairs in EAC and on TM. LT - cerumen and hairs debrided from EAC Patient ID: Quentin Davis is a 79 y.o. male. Procedures Cerumen was removed from the left ear using binocular microscopy under micro with suction, curette and/or foreceps Foreign body removed from the right ear canal under micro with a forecep Assessment/Plan Diagnoses and all orders for this visit: Left ear impacted cerumen Foreign body of right ear, initial encounter Dizziness and giddiness Ears debrided and look good Pt's dizziness is c/w orthostasis. He does not take BP meds raising concern for a possible cardiac problem. Dr Guajardo contacted regarding concern [id number] Evaluation note* Diagnosis Onset Date Resolution Status Admit Date Acute foreign body of right ear canal acute August 15, 2024 11:21am Eustachian salpingitis, chronic acut e August 15, 2024 11:21am SNHL (sensorineural hearing loss) acute August 15, 2024 11:21am Bilateral primary osteoarthritis of knee acute November 07, 2024 9:32am [facility] Work Phone: 1(893) 408-349805-12-2025 Evaluation note* Diagnosis Onset Date Resolution Status Admit Date MARANDA (generalized anxiety disorder) a cute July 02, 2024 10:54am Gastroesophageal reflux dise ase with esophagitis without hemorrhage acute July 02, 2024 1 0:54am H/O mitral valve repair acute M 2024 10:54am Nonrheumatic mitral valve stenosis a cute July 02, 2024 10:54am [facility] Work Phone: 1(180) 520-516410-31-2023 Evaluation note* Encounter Date Diagnosis Assessment Notes Treatment Notes Treatment Clinical Notes Nov, Mitral valve disorder (ICD-10 - I05.9) Mr Davis is a 77yoM with PMH of 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 Echo on 12/10/2022 showed EF of 60-65% with moderately dilated left atrium and moderate to severe mitral stenosis. No prior echo is available for comparison. Assessment: History of mitral valve repair Recent echo with normal LVEF and moderate-severe mitral stenosisEKG today shows sinus rhythm with first-degree AV block. Low voltage noted in limb leads. Plan: Pt with symptoms of mild fatigue but no acute symptoms. Personal review of ECHO shows Mean Mitral gradient of 3mmHg and max gradient of 8 mmHg & MVA of 2.2cm- consistent with Mild mitral stenosis - Will plan to repeat ECHO in 6 months when back from [place]. Follow up in clinic after ECHO. - Instructed to monitor for symptoms of CHF-dyspnea, orthopnea, PND, BLE edema or weight gain as well as chest pain, palpitations and be evaluated in the emergency room should these occur. Nov, History of mitral valve repair (ICD-10 - Z98.890) lettrs Other 10-12-2023 Evaluation note* Encounter Date Diagnosis Assessment Notes Treatment Notes Treatment Clinical Notes Nov, Medicare annual wellness visit, subsequent (ICD-10 - Z00.00) Personalized health advice was given to the beneficiary including a written plan for screenings discussed and provided. Advanced care planning reviewed and/or information given as requested. Additional counseling was provided here today in regards to, [ ]. The above visit was performed by [ ], under direct supervision of [ ]. Document reviewed and amended by provider signed below. Nov, Hyperlipidemia, group A (ICD-10 - E78.00) Instructed on diet and exercise.Discussed the beneficial effects of lowering cholesterol in reducing the risk for cerebrovascular and cardiovascular disease. Nov, Benign prostatic hyperplasia with lower urinary tract symptoms (ICD-10 - N40.1) Symptoms tolerable, yearly PSA Nov, MARANDA (generalized anxiety disorder) (ICD-10 - F41.1) Much improved w/ BuSpar. Taking sporadically about once weekly. Informed him that it would be safe to take daily as needed Nov, Primary osteoarthritis of both knees (ICD-10 - M17.0) Improved w/ Visco supplementation. Nov, History of mitral valve repair (ICD-10 - Z98.890) Denies CP, dyspnea, palpitations, PND or increased edema. Schedule [employer] Other 10-12-2023 Evaluation note* Encounter Date Diagnosis Assessment Notes Treatment Notes Treatment Clinical Notes Nov, Medicare annual wellness visit, subsequent (ICD-10 - Z00.00) Personalized health advice was given to the beneficiary including a written plan for screenings discussed and provided. Advanced care planning reviewed and/or information given as requested. Additional counseling was provided here today in regards to, [ ]. The above visit was performed by [ ], under direct supervision of [ ]. Document reviewed and amended by provider signed below. Nov, Nonrheumatic mitral valve stenosis (ICD-10 - I34.2) Asymptomatic mitral stenosis in a repaired valve. Recommend referral for cardiology evaluation. Nov, Hyperlipidemia, group A (ICD-10 - E78.00) Instructed on diet and exercise.Discussed the beneficial effects of lowering cholesterol in reducing the risk for cerebrovascular and cardiovascular disease. Nov, Benign prostatic hyperplasia with lower urinary tract symptoms (ICD-10 - N40.1) Symptoms tolerable, yearly PSA Nov, MARANDA (generalized anxiety disorder) (ICD-10 - F41.1) Much improved w/ BuSpar. Taking sporadically about once weekly. Informed him that it would be safe to take daily as needed Nov, Primary osteoarthritis of both knees (ICD-10 - M17.0) Improved w/ Visco supplementation. Nov, History of mitral valve repair (ICD-10 - Z98.890) Denies CP, dyspnea, palpitations, PND or increased edema. [employer] Other 10-05-2023 Evaluation note* Encounter Date Diagnosis Assessment Notes Treatment Notes Treatment Clinical Notes Nov, Elevated TSH (ICD-10 - R79.89) lettrs Other 09-06-2023 Evaluation note* Encounter Date Diagnosis Assessment Notes Treatment Notes Treatment Clinical Notes Oct, Pain in right knee (ICD-10 - M25.561) Oct, Pain in left knee (ICD-10 - M25.562) Oct, Primary osteoarthritis of both knees (ICD-10 - M17.0) Rj presents with end-stage bilateral knee DJD. At this juncture we have discussed the findings and diagnosis as well as personally reviewed appropriate imaging and performed interpretation of related testing and examination with the patient in office today. Prior medical notes Dr. Hudson and history have been reviewed. Today we have discussed degenerative joint disease of the knee and its treatment. Imaging was discussed and explained to the patient. We discussed recommended conservative therapies including physical therapy, anti-inflammatory medications, and weight loss strategies. We also discussed other treatment options including cortisone injections, Visco supplementation injections which are options for treatment. I have laid out the course of knee DJD including the end-stage treatment of total joint arthroplasty. The patient recognizes and understands our options and goals and we will move forward with our treatment. He has had good results with prior viscosupplementation injections and wants to continue this. He gets these in [place] typically. Today we have initiated Synvisc 1 injection. Risks and benefit of injection were discussed and verbal consent was obtained. Under sterile technique the patient's bilateral knee was injected via the inferolateral portal with Synvisc 1, this was tolerated well without any adverse reaction. Band-Aid was applied to the area. I will see them back as needed. The patient has been involved in our cooperative treatment plan and agrees to move forward with treatment at this time. Radiographs reviewed with patient and as significant arthritis in the bilateral knees. Based on the severity of arthritis discussed conservative treatment may provide limited relief. Patient opts for HAWKINS injections today noting he has had good relief from injections in the past. Patient was prepped and synvisc ONE injected into the bilateral knees under sterile conditions. Patient tolerated well with no adverse reactions. Oct, Other See orders for this visit as documented in the electronic medical record. lettrs Other 09-05-2023 Evaluation note* Encounter Date Diagnosis Assessment Notes Treatment Notes Treatment Clinical Notes Oct, Hyperlipidemia, group A (ICD-10 - E78.00) Instructed on diet and exercise with continued statin therapy.Discussed the beneficial effects of lowering cholesterol in reducing the risk for cerebrovascular and cardiovascular disease. Oct, Benign prostatic hyperplasia with lower urinary tract symptoms (ICD-10 - N40.1) Symptoms tolerable Yearly PSA Oct, MARANDA (generalized anxiety disorder) (ICD-10 - F41.1) Healthy diet and exercise. Keep active and consistent sleep routine. Initiate Buspar to be used as needed Oct, Primary osteoarthritis of both knees (ICD-10 - M17.0) Quad exercises, ice/heat, bracing and Tylenol. Avoid squatting or kneeling. Declines further evaluation/treatment - discussed IA cortisone, Synvisc and referral for TKA consideration Oct, Fatigue, unspecified type (ICD-10 - R53.83) r/o anemia, diabetes and thyroid disease Oct, History of mitral valve repair (ICD-10 - Z98.890) Last echocardiogram 2016 Send order for echocardiogram to [facility] [employer] Other Evaluation noteNo assessment information available [facility] Work Phone: Evaluation noteNo InformationNortJefferson [facility] [employer] Other Evaluation note* Diagnosis Onset Date Resolution Status Admit Date MARANDA (generalized anxiety disorder) a cute July 02, 2024 10:54am Gastroesophageal reflux dise ase with esophagitis without hemorrhage acute July 02, 2024 1 0:54am H/O mitral valve repair acute M ay 2024 10:54am Nonrheumatic mitral valve stenosis a cute July 02, 2024 10:54am [facility] Work Phone: Evaluation note* Diagnosis Left ear impacted cerumen- Primary Impacted cerumen Foreign body of right ear, initial encounter Dizziness and giddiness documented in this encounter [facility] N[facility]ative - Reported* Type Description Date Medical History Gastroesophageal ref lux disease with esophagitis without hemorrhage Medical History Benign prostatic hyp erplasia with lower urinary tract symptoms Medical History Benign paroxysmal positional daniela tigo, bilateral Medical History Cervical spondylosis Medical History H/O mitral valve replacement Medical History Osteoarthritis of both knees Medical History Hyperlipidemia, group A Medical History Lumbar spondylosis Surgical History EGD 2016 Surgical History Colonoscopy 09/2005 Surgical History Right Laparoscopic Herniorrhaph y 2015 Hospitalization History see surgical history lettrs Other Hisoeej general Narrative - Reported* Type Description Date Medical History Gastroesophageal ref lux disease with esophagitis without hemorrhage Medical History Benign prostatic hyp erplasia with lower urinary tract symptoms Medical History Benign paroxysmal positional daniela tigo, bilateral Medical History Cervical spondylosis Medical History H/O mitral valve replacement Medical History Osteoarthritis of both knees Medical History Hyperlipidemia, group A Medical History Lumbar spondylosis Surgical History EGD 2016 Surgical History Colonoscopy 09/2005 Surgical History Right Laparoscopic Herniorrhaph y 2015 Surgical History Colonoscopy 2016 Hospitalization History see surgical history lettrs Other Hisqlra general Narrative - Reported* Type Description Date Medical History Gastroesophageal ref lux disease with esophagitis without hemorrhage Medical History Benign prostatic hyp erplasia with lower urinary tract symptoms Medical History Benign paroxysmal positional daniela tigo, bilateral Medical History Cervical spondylosis Medical History Osteoarthritis of both knees Medical History Hyperlipidemia, group A Medical History Lumbar spondylosis Medical History Mitral Valve repair 04/29/1999 Surgical History EGD 2016 Surgical History Colonoscopy 09/2005 Surgical History Right Laparoscopic Herniorrhaph y 2015 Surgical History Colonoscopy 2015 Surgical History Mitral valve repair 1999 Hospitalization History see surgical history lettrs Other Reason for referral (narrative)* Reason Referral for mitral stenosis in a previously repaired valve. Diagnosis 1 Nonrheumatic mitral valve stenosis (I34.2) Diagnosis 2 History of mitral va lve repair (Z98.890) Referral Organization [facility] Bennett link Referring Provider First Name Cleveland Referring Provider Last Name Bennett Referring Provider Specialty Internal Me dicine Referred Organization [facility] Referred Provider Renata Carvalho Referred Address [address] [place] [phone] Referred Provider Specialty Cardiovascul ar Disease Referral Priority Routine General Notes Mr. Davis is an as ymptomatic patient with a history of mitral valve repair in 1999. His [employer] retired this past fall and he is being referred to establish care. I repeated his echocardiogram, since none has been done since 2016, which revealed severe mitral stenosis. I would appreciate Mr. Davis being seen in the next 7-10 days, since he has plans to leave for [place] on December 25. Clinical Notes Include labs from is year. Include Echocardiogram from October 2022. Include Echocardiogram from [address] Grijalva's notes from last couple OV. lettrs Other Reason for referral (narrative)No reason for referral [facility] available[facility] Work Phone: Summary Purpose Family History Relationship Condition Age at Onset Recorded Date/T tiesha father Heart disease Unknown Unknown Not Specified Diabetes mellitus Unknown Relationship Condition Age at Onset Recorded Date/T tiesha father Heart disease Unknown Unknown Pulmonary embolism Unknown mother Diabetes mellitus Unknown Heart disease Unknown Congestive heart failure Unknown sister Dementia Unknown Advance Directives Advance Directive Response Recorded Date/ Time Advance Directives No October 10:10am Chief Complaint and Reason for Visit Chief Complaint Admit Date 1 yr July 02, 2024 10:54 am R Ear Pain August 15, 2024 11:2 1am Reason for Visit Admit Date MARANDA (generalized anxiety disorder) June 212024 10:54am Gastroesophageal reflux dise ase with esophagitis without hemorrhage July 02, 2024 10:54am H/O mitral valve repair July 02, 2024 1 0:54am Nonrheumatic mitral valve stenosis June 212024 10:54am Chief Complaint M25.561/M25.562 z98.890 Chief Complaint I05.9 Z98.890 Chief Complaint Admit Date 1 yr July 02, 2024 10:54 am Chief Complaint Admit Date R Ear Pain August 15, 2024 11:2 1am M17.0 - Bilateral primary osteoarthritis of knee November 07, 2024 8:20am OP SP BILAT KNEE PAIN WANTS HAWKINS INJ Septe mber 2024 9:32am Reason for Visit Admit Date Acute foreign body of right ear canal Ju 2024 11:21am Eustachian salpingitis, chronic July 11:21am SNHL (sensorineural hearing loss) July 232024 11:21am Bilateral primary osteoarthritis of knee November 07, 2024 9:32am Chief Complaint Admit Date M17.0 - Bilateral primary osteoarthritis of knee November 07, 2024 8:20am OP SP BILAT KNEE PAIN WANTS HAWKINS INJ Septe mber 2024 9:32am wellness December 06, 2024 8 :57am Reason for Visit Admit Date Bilateral primary osteoarthritis of knee November 07, 2024 9:32am MARANDA (generalized anxiety disorder) Octob er 2024 8:57am Gastroesophageal reflux dise ase with esophagitis without hemorrhage December 06, 2024 8:57am H/O mitral valve repair December 06 8:57am Medicare annual wellness visit, subseque nt December 06, 2024 8:57am Screening PSA (prostate specific antigen ) December 06, 2024 8:57am Additional Source Comments (unrecognized sect ion and content) No Status Records FoundNo Status Records FoundNo Status Records Found INFORMATION SOURCE (unrecogn ized section and content) DATE CREATED AUTHOR 07/03/2022 [facility] DATE CREATED AUTHOR AUTHOR'S ORGANIZ ATION 08/21/2024 [facility] EPIC DATE CREATED AUTHOR AUTHOR'S ORGANIZ ATION 11/10/2024 [facility] REASON FOR VISIT (unrecogniz ed section and content) Reason Comments Ear Problem Care Teams (unrecognized sec tion and content) Team Status: Inactive Member Role Status Dates Ha Junior DO Attending Provider Active Team Status: Active Member Role Status Dates Cleveland Guajardo DO Primary Care Provider Active Team Status: Inactive Member Role Status Donaldo Guajardo DO Primary Care Provider, Attending Pr ovider Active Team Status: Inactive Member Role Status Dates Ha Junior DO Attending Provider Active NON STAFF Primary Care Provider Active Team Status: Inactive Member Role Status Dates [place] Guajardo DO Primary Care Provider Active Start: June 27, 2023 End: June 27, 2023 Renata Carvalho MD Attending Provider Active Sta rt: June 27, 2023 End: June 27, 2023 Team Status: Active Member Role Status Dates Renata Carvalho MD [employer]visor [employer] Active [place] Guajardo DO Primary Care Provider Active Team Status: Inactive Member Role Status Donaldo Guajardo DO Primary Care Provider Active Start: July 02, 2024 End: July 02, 2024 Renata Carvalho MD Attending Provider Active Sta rt: July 02, 2024 End: July 02, 2024 Team Status: Inactive Member Role Status Dates Cleveland Guajardo DO Primary Care Provider Active Start: August 15, 2024 End: August 15, 2024 Cleveland Guajardo DO Attending Provider Active Sta rt: August 15, 2024 End: August 15, 2024 [employer] Cast[employer] Relationship Specialty Start Date End Date Cleveland Guajardo DO [address] [place] [id number] PCP - General Internal Medicine 08/20/24 [employer] Cast[employer] Operator Relationship Specialty Start Date End Date Cleveland Guajardo DO [address] [place] [id number] PCP - General Internal Medicine 08/20/24 Team Status: Active Member Role Status Dates Cleveland Guajardo DO Primary Care Provider Active Start: November 07, 2024 Ha Junior DO Attending Provider Active S tart: November 07, 2024 Team Status: Inactive Member Role Status Dates Cleveland Guajardo DO Primary Care Provider Active Start: November 07, 2024 End: November 07, 2024 Ha Junior DO Attending Provider Active S tart: November 07, 2024 End: November 07, 2024 Team Status: Inactive Member Role Status Dates Cleveland Guajardo DO Primary Care Provider Active Start: December 06, 2024 End: December 06, 2024 Cleveland Guajardo DO Attending Provider Active Sta rt: December 06, 2024 End: December 06, 2024 Goals (unrecognized section and content) Goals may be documented in a n alternate section FOR RECORDS PERTAINING TO PATIENTS WHO ARE OR HAVE BEEN ENROLLED IN A CHEMICAL DEPENDENCY/SUBSTANCEABUSE PROGRAM, SOME INFORMATION MAY BE OMITTED. This clinical summary was aggregated from multiple sources. Caution should be exercised in using it in the provision of clinical care. This summary normalizes information from multiple sources, and as a consequence, information in this document may materially change the coding, format and clinical context of patient data. In addition, data may be omitted in some cases. CLINICAL DECISIONS SHOULD BE BASED ON THE PRIMARY CLINICAL RECORDS. [employer] provides no warranty or guarantee of the accuracy or completeness of information in this document.
[2024-12-07 13:08] LABS: Hematocrit 46.6 % (42.0-54.0); Hemoglobin 15.6 g/dL (14.0-18.0); Immature Granulocytes Abs Auto 0.02 10^3/uL (0.00-0.03); Immature Granulocytes Pct Auto 0.4 % (0.0-0.5); Lymphocytes Absolute Auto 1.0 10^3/uL (1.2-3.8); Mean Corpuscular HGB Conc 33.5 g/dL (29.9-35.2); Mean Corpuscular Hemoglobin 31.4 pg (25.9-34.0); Mean Corpuscular Volume 93.8 fL (80.0-94.0); Platelet Count 150 10^3/uL (150-450); Red Blood Count 4.97 10^6/uL (4.70-6.10); White Blood Count 5.5 10^3/uL (4.0-11.0)
[2024-12-07 13:25] LABS: Alanine Aminotransferase 31 U/L (16-63); Albumin Globulin Ratio 1.2; Albumin Level 3.5 g/dL (3.4-5.0); Alkaline Phosphatase 94 U/L (46-116); Anion Gap 9.2; Aspartate Amino Transferase 22 U/L (15-37); Blood Urea Nitrogen 24.0 mg/dL (7.0-18.0); Calcium 8.3 mg/dL (8.5-10.1); Carbon Dioxide 27.9 mmol/L (21.0-32.0); Chloride 108 mmol/L (98-107); Estimated GFR (African America >60 (>=60 mL/min/1.73m^2); Estimated GFR (Non-African Ame >60 (>=60 mL/min/1.73m^2); Globulin 3.0 g/dL; Glucose 81 mg/dL (74-106); Potassium 4.1 mmol/L (3.5-5.1); Sodium 141 mmol/L (136-145); Total Protein 6.5 g/dL (6.4-8.2)
== END 2024-12-07 11:40 | disposition home or self-care (01) ==
LOC: LAB 11:41
PROVIDERS: PCP Internal Medicine; Visit Provider Internal Medicine
DX: Z12.5 Encounter for screening for malignant neoplasm of prostate (principal); I34.2 Nonrheumatic mitral (valve) stenosis; R53.83 Other fatigue
CPT/HCPCS: 36415; 80053; 85025; G0103